=== PATIENT | male | born 1980 | race Caucasian/White ===

== ENCOUNTER 2020-05-22 14:33 | Observation (INO) | payer OTHER ==
[2020-05-22 15:22] VITALS: TEMP 98.5
--- NOTE | 2020-05-22 16:36 | ED ---
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 According to father he hasn't showered in 3 months. According to the father the patient has 3 phones and thinks all of them are bugs. Patient also thinks people are spying on him. Patient thinks his father wants kicked out of the house. Patient thinks It might be involved as well. Patient denies any drug use patient denies any alcohol use (Jose Daniel Rockwell) - Related Data Home Medications Medication Instructions Recorded Confirmed Dextroamphetamine/Amphetamine 15 - 30 mg PO BID PRN 05/22/20 05/22/20 [Adderall] Allergies Allergy/AdvReac Type Severity Reaction Status Date / Time No Known Allergies Allergy Verified 05/22/20 18:18 Review of Systems ROS Other: All systems not noted in ROS Statement are negative. <Jose Daniel Rockwell - Last Filed: 05/22/20 17:07> ROS Other: All systems not noted in ROS Statement are negative. <Franck Cummings - Last Filed: 05/22/20 22:08> ROS Statement: Those systems with pertinent positive or pertinent negative responses have been documented in the HPI. Past Medical History Additional Past Medical History / Comment(s): kidney stones History of Any Multi-Drug Resistant Organisms: None Reported Past Surgical History: No Surgical Hx Reported Past Psychological History: Anxiety, Depression Smoking Status: Current every day smoker Past Alcohol Use History: None Reported Past Drug Use History: None Reported <Jose Daniel Rockwell - Last Filed: 05/22/20 17:07> General Exam Limitations: no limitations <Jose Daniel Rockwell - Last Filed: 05/22/20 17:07> - General Exam Comments Initial Comments: GENERAL: Patient is well-developed and well-nourished. Patient is nontoxic and well- hydrated and is in no acute distress. ENT: Neck is soft and supple. No significant lymphadenopathy is noted. Oropharynx is clear. Moist mucous membranes. Neck has full range of motion without eliciting any pain. EYES: The sclera were anicteric and conjunctiva were pink and moist. Extraocular movements were intact and pupils were equal round and reactive to light. Eyelids were unremarkable. PULMONARY: Unlabored respirations. Good breath sounds bilaterally. No audible rales r honchi or wheezing was noted. CARDIOVASCULAR: Patient is tachycardic at about 150 beats a minute ABDOMEN: Soft and nontender with normal bowel sounds. SKIN: Skin is clear with no lesions or rashes and otherwise unremarkable. NEUROLOGIC: Patient is alert and oriented x3. Cranial nerves II through XII are grossly intact. Motor and sensory are also intact. Normal speech, volume and content. Symmetrical smile. MUSCULOSKELETAL: Normal extremities with adequate strength and full range of motion. LYMPHATICS: No significant lymphadenopathy is noted PSYCHIATRIC: Patient is delusional he believes his phones are In the houses being spied on. Patient states there is someone stalking him as well. Patient thinks this is all in an effort to get him out of the house. Patient also thinks somehow forgotten that may be involved. (Jose Daniel Rockwell) Course Vital Signs 05/22/20 05/22/20 05/22/20 15:15 16:50 17:29 Temperature 98.5 F Pulse Rate 150 H 155 H 142 H Respiratory 20 22 Rate Blood Pressure 156/98 O2 Sat by Pulse 95 Oximetry 05/22/20 05/22/20 05/22/20 17:55 18:24 19:00 Temperature Pulse Rate 132 H 134 H 130 H Respiratory 18 18 18 Rate Blood Pressure 166/110 163/113 O2 Sat by Pulse 99 95 98 Oximetry 05/22/20 21:22 Temperature Pulse Rate 106 H Respiratory Rate Blood Pressure O2 Sat by Pulse Oximetry Medical Decision Making <Jose Daniel Rockwell - Last Filed: 05/22/20 17:07> - Lab Data Result diagrams: 05/22/20 16:57 05/22/20 16:57 <Franck Cummings - Last Filed: 05/22/20 22:08> - Medical Decision Making EKG shows sinus tachycardia at 155 bpm MI interval 112 QRS 76 QT interval 326 QTC is 523 per patient's EKG showsa elevation or depression. (Jose Daniel Rockwell) Patient had presented for psychiatric evaluation, had been petitioned. He was found to be tachycardic by Dr. Rockwell who had initially evaluated the patient. He has no physical complaints. He is quite anxious and acutely psychotic with paranoid behavior. EKG showed a sinus tachycardia and workup was initiated including CBC, CMP, d-dimer, troponin, and drug screen. His troponin level was mildly elevated. After 2 L of IV hydration and some Ativan the patient's heart rate improved to around 100. He has no active chest pain. He will be admitted for hemodynamic monitoring, trended cardiac enzymes, both cardiology and psychiatry consultation. Urine drug screen pending. (Franck Cummings) - Lab Data Lab Results 05/22/20 05/22/20 05/22/20 Range/Units 16:57 16:57 17:12 WBC 10.1 (3.8-10.6) k/uL RBC 5.38 (4.30-5.90) m/uL Hgb 16.2 (13.0-17.5) gm/dL Hct 46.2 (39.0-53.0) % MCV 85.9 (80.0-100.0) fL MCH 30.1 (25.0-35.0) pg MCHC 35.0 (31.0-37.0) g/dL RDW 12.7 (11.5-15.5) % Plt Count 263 (150-450) k/uL MPV 7.3 Neutrophils % 77 % Lymphocytes % 12 % Monocytes % 7 % Eosinophils % 1 % Basophils % 1 % Neutrophils # 7.8 H (1.3-7.7) k/uL Lymphocytes # 1.2 (1.0-4.8) k/uL Monocytes # 0.7 (0-1.0) k/uL Eosinophils # 0.1 (0-0.7) k/uL Basophils # 0.1 (0-0.2) k/uL D-Dimer (<0.60) mg/L FEU Sodium 135 L (137-145) mmol/L Potassium 3.7 (3.5-5.1) mmol/L Chloride 101 (98-107) mmol/L Carbon Dioxide 23 (22-30) mmol/L Anion Gap 11 mmol/L BUN 12 (9-20) mg/dL Creatinine 1.15 (0.66-1.25) mg/dL Est GFR (CKD-EPI)AfAm >90 (>60 ml/min/1.73 sqM) Est GFR (CKD-EPI)NonAf 81 (>60 ml/min/1.73 sqM) Glucose 139 H (74-99) mg/dL Calcium 10.2 (8.4-10.2) mg/dL Total Bilirubin 0.5 (0.2-1.3) mg/dL AST 38 (17-59) U/L ALT 39 (4-49) U/L Alkaline Phosphatase 90 (38-126) U/L Troponin I 0.043 H* (0.000-0.034) ng/mL Total Protein 7.7 (6.3-8.2) g/dL Albumin 4.6 (3.5-5.0) g/dL Coronavirus (PCR) (Not Detectd) 05/22/20 05/22/20 Range/Units 18:23 18:23 WBC (3.8-10.6) k/uL RBC (4.30-5.90) m/uL Hgb (13.0-17.5) gm/dL Hct (39.0-53.0) % MCV (80.0-100.0) fL MCH (25.0-35.0) pg MCHC (31.0-37.0) g/dL RDW (11.5-15.5) % Plt Count (150-450) k/uL MPV Neutrophils % % Lymphocytes % % Monocytes % % Eosinophils % % Basophils % % Neutrophils # (1.3-7.7) k/uL Lymphocytes # (1.0-4.8) k/uL Monocytes # (0-1.0) k/uL Eosinophils # (0-0.7) k/uL Basophils # (0-0.2) k/uL D-Dimer 0.45 (<0.60) mg/L FEU Sodium (137-145) mmol/L Potassium (3.5-5.1) mmol/L Chloride (98-107) mmol/L Carbon Dioxide (22-30) mmol/L Anion Gap mmol/L BUN (9-20) mg/dL Creatinine (0.66-1.25) mg/dL Est GFR (CKD-EPI)AfAm (>60 ml/min/1.73 sqM) Est GFR (CKD-EPI)NonAf (>60 ml/min/1.73 sqM) Glucose (74-99) mg/dL Calcium (8.4-10.2) mg/dL Total Bilirubin (0.2-1.3) mg/dL AST (17-59) U/L ALT (4-49) U/L Alkaline Phosphatase (38-126) U/L Troponin I (0.000-0.034) ng/mL Total Protein (6.3-8.2) g/dL Albumin (3.5-5.0) g/dL Coronavirus (PCR) Not Detected (Not Detectd) Disposition <Jose Daniel Rockwell - Last Filed: 05/22/20 17:07> Is patient prescribed a controlled substance at d/c from ED?: No Decision to Admit Reason: Admit from EC Decision Date: 05/22/20 Decision Time: 22:08 <Franck Cummings - Last Filed: 05/22/20 22:08> Clinical Impression: Psychosis, Acute psychosis, Tachycardia, Elevated troponin Disposition: ADMITTED IP TO THIS [facility] Condition: Stable Referrals: Jesús Tinsley MD [Primary Care Provider] - 1-2 days
[2020-05-22] MEDS ORDERED: SODIUM CHLORIDE 0.9% 2,000 ML IV ONE (16:45)
[2020-05-22 17:11] LABS: Basophils # (A) 0.1 k/uL (0-0.2); Basophils % (A) 1 %; Eosinophils # (A) 0.1 k/uL (0-0.7); Eosinophils % (A) 1 %; HCT 46.2 % (39.0-53.0); HGB 16.2 gm/dL (13.0-17.5); Lymphocytes # (A) 1.2 k/uL (1.0-4.8); Lymphocytes % (A) 12 %; MCH 30.1 pg (25.0-35.0); MCV 85.9 fL (80.0-100.0); Mean Platelet Volume 7.3; Monocytes # (A) 0.7 k/uL (0-1.0); Monocytes % (A) 7 %; Neutrophils # (A) 7.8 k/uL (1.3-7.7); Neutrophils % (A) 77 %; Platelet Count 263 k/uL (150-450); RBC 5.38 m/uL (4.30-5.90); RDW 12.7 % (11.5-15.5); WBC 10.1 k/uL (3.8-10.6)
[2020-05-22 17:20] LABS: ALT 39 U/L (4-49); AST 38 U/L (17-59); African American GFR (CKD) >90 (>60 ml/min/1.73 sqM); Albumin 4.6 g/dL (3.5-5.0); Alkaline Phosphatase 90 U/L (38-126); Anion Gap 11 mmol/L; Blood Urea Nitrogen 12 mg/dL (9-20); Calcium 10.2 mg/dL (8.4-10.2); Carbon Dioxide 23 mmol/L (22-30); Chloride 101 mmol/L (98-107); Glucose 139 mg/dL (74-99); Non-African American GFR(CKD) 81 (>60 ml/min/1.73 sqM); Potassium 3.7 mmol/L (3.5-5.1); Sodium 135 mmol/L (137-145); Total Bilirubin 0.5 mg/dL (0.2-1.3); Total Protein 7.7 g/dL (6.3-8.2)
[2020-05-22] MEDS ORDERED: LORazepam 2 MG/ML INJ IV STA (18:56)
[2020-05-22] MEDS ORDERED: ASPIRIN 325 MG TAB PO STA (21:58)
[2020-05-22] MEDS ORDERED: LORazepam 2 MG/ML INJ IV PRN (21:59)
[2020-05-22] MEDS ORDERED: NALOXONE 0.4 MG/ML 1 ML VIAL IV PRN (21:59)
[2020-05-22] MEDS ORDERED: ACETAMINOPHEN TAB 325 MG TAB PO PRN (21:59)
[2020-05-22] MEDS ORDERED: NICOTINE POLACRILEX 2 MG GUM BUCCAL PRN (22:30)
[2020-05-22] MEDS: SODIUM CHLORIDE 0.9% 1,000 ML IV SCH (22:41)
[2020-05-23] MEDS ORDERED: HALOPERIDOL LACTATE 5 MG/ML 1 ML VIAL IM STA (00:38)
--- NOTE | 2020-05-23 12:00 | ECHOF ---
Referral Reason:LV function, tachycardia MEASUREMENTS -------- HEIGHT: 180.3 cm WEIGHT: 81.6 kg BP: RVIDd: 3.1 cm (< 3.3) IVSd: 0.9 cm (0.6 - 1.1) LVIDd: 4.4 cm (3.9 - 5.3) LVPWd: 1.2 cm (0.6 - 1.1) IVSs: 1.9 cm LVIDs: 1.9 cm LVPWs: 1.9 cm Ao Diam: 3.0 cm (2.0 - 3.7) AV Cusp: 2.3 cm (1.5 - 2.6) LA Diam: 2.8 cm (2.7 - 3.8) MV EXCURSION: 3.471 mm (> 18.000) MV EF SLOPE: 111 mm/s (70 - 150) EPSS: 0.6 cm MV E Marc: 0.87 m/s MV DecT: 228 ms MV A Marc: 0.80 m/s MV E/A Ratio: 1.08 RAP: 5.00 mmHg RVSP: 10.90 mmHg FINDINGS -------- This was a technically adequate study. The left ventricular size is normal. Left ventricular wall thickness is normal. Overall left vent ricular systolic function is normal with, an EF between 55 - 60 %. The diastolic filling pattern is normal for the age of the patient 8.59. The right ventricle is normal in size. The left atrial size is normal. Normal LA size by volume 22+/-6 ml/m2. The right atrial size is normal. The aortic valve is trileaflet and appears structurally normal. The mitral valve is normal. No mitral regurgitation. The tricuspid valve appears structurally normal. Trace tricuspid regurgitation present. Right ayad tricular systolic pressure is normal at < 35 mmHg. There is no pulmonic regurgitation present. The aortic root size is normal. Normal inferior vena cava with normal inspiratory collapse consistent with estimated right atrial pre ssure of 5 mmHg. There is no pericardial effusion. CONCLUSIONS -------- 1. The left ventricular size is normal. 2. Left ventricular wall thickness is normal. 3. Overall left ventricular systolic function is normal with, an EF between 55 - 60 %. 4. The diastolic filling pattern is normal for the age of the patient 8.59 5. Trace tricuspid regurgitation present. 6. There is no pericardial effusion. FINISH MIXER: Rosa Godfrey RDCS
--- NOTE | 2020-05-23 13:12 | P.HPIM ---
History of Present Illness 39-year-old more male came in after he was petitioned by father for bizarre behavior and patient was paranoid, and was having acute psychosis. Please refer to ER physician's documentation for further details. Patient was subsequently admitted to medicine service because of the tachycardia and they believe patient is dehydrated. Patient is an not all at home. May have contributed tachycardia and patient is bit dehydrated as well and patient received IV fluids patient is clinically doing well tach cardia significantly improved and patient can be discharged to psychiatric floor patient is medically stable to be go to psychiatric floor at this time. Review of Systems REVIEW OF SYSTEMS: all other review of systems is negative, patient is not a reliable historian because of his acute psychosis Past Medical History Past Medical History: GERD/Reflux, Renal Disease Additional Past Medical History / Comment(s): kidney stones, small hiatal hernia History of Any Multi-Drug Resistant Organisms: None Reported Past Surgical History: No Surgical Hx Reported Additional Past Surgical History / Comment(s): EGD, colonoscopies Past Anesthesia/Blood Transfusion Reactions: No Reported Reaction, Motion Sickn ess Smoking Status: Current every day smoker - Past Family History Father Family Medical History: No Reported History Additional Family Medical History / Comment(s): Father is healthy Mother Family Medical History: No Reported History Additional Family Medical History / Comment(s): Mother is healthy Medications and Allergies Home Medications Medication Instructions Recorded Confirmed Type Dextroamphetamine/Amphetamine 15 - 30 mg PO BID PRN 05/22/20 05/22/20 History [Adderall] Allergies Allergy/AdvReac Type Severity Reaction Status Date / Time No Known Allergies Allergy Verified 05/22/20 18:18 Physical Exam Vitals: Vital Signs Temp Pulse Resp BP Pulse Ox 05/23/20 10:41 88 18 114/78 99 05/23/20 02:27 90 98 05/22/20 21:22 106 H 05/22/20 19:00 130 H 18 163/113 98 05/22/20 18:24 134 H 18 166/110 95 05/22/20 17:55 132 H 18 99 05/22/20 17:29 142 H 05/22/20 16:50 155 H 22 05/22/20 15:15 98.5 F 150 H 20 156/98 95 Intake and Output 05/22/20 05/23/20 05/23/20 22:59 06:59 14:59 Other: Weight 81.647 kg 81.647 kg PHYSICAL EXAMINATION: GENERAL: Drowsy as he just got Ativan, not in any acute distress. Well developed, well nourished. HEENT: Pupils are round and equally reacting to light. EOMI. No scleral icterus. No conjunctival pallor. Normocephalic, atraumatic. No pharyngeal erythema. No thyromegaly. CARDIOVASCULAR: S1 and S2 present. No murmurs, rubs, or gallops. PULMONARY: Chest is clear to auscultation, no wheezing or crackles. ABDOMEN: Soft, nontender, nondistended, normoactive bowel sounds. No palpable organomegaly. MUSCULOSKELETAL: No joint swelling or deformity. EXTREMITIES: No cyanosis, clubbing, or pedal edema. NEUROLOGICAL: Gross neurological examination did not reveal any focal deficits. SKIN: No rashes. Results CBC & Chem 7: 05/22/20 16:57 05/22/20 16:57 Labs: Abnormal Lab Results - Last 24 Hours (Table) 05/22/20 05/22/20 05/22/20 Range/Units 16:57 16:57 17:12 Neutrophils # 7.8 H (1.3-7.7) k/uL Sodium 135 L (137-145) mmol/L Glucose 139 H (74-99) mg/dL Troponin I 0.043 H* (0.000-0.034) ng/mL Thrombosis Risk Factor Assmnt - Choose All That Apply Any of the Below Risk Factors Present?: No Other Risk Factors: No Other congenital or acquired thrombophilia - If yes, enter type in comment: No Thrombosis Risk Factor Assessment Level: Very Low Risk Assessment and Plan Plan: -Sinus tachycardia: Secondary to dehydration which improved with IV fluid resuscitation tach cardia improved patient will be discharged today to psychiatric floor. Patient is medically to stable to be discharged to psychiatric floor. Patient had an echocardiogram which did not show any significant abnormality patient will not need any further testing at this time. -Hypovolemic hyponatremia received IV fluids -Dehydration leading to acute renal failure, Adderall will be held for now I'll leave the decision of continuation of this medication to psychiatry. -Acute psychosis and possible paranoid schizophrenia. Patient will be discharged to psychiatric floor
--- NOTE | 2020-05-23 13:13 | P.DS ---
Providers Date of admission: 05/22/20 22:01 Attending physician: Zandra Nino Consults: 05/22/20 21:59 Consult Physician Routine Consulting Provider: Berry Arias Reason/Comments: Psychosis Do you want consulting provider notified?: Yes Primary care physician: Alvina Espinosa [facility] Course: Refer to my history of present illness for further details Patient Condition at Discharge: Stable Plan - Discharge Summary Discharge Rx Participant: No New Discharge Prescriptions: No Action Dextroamphetamine/Amphetamine [Adderall] 15 - 30 mg PO BID PRN PRN Reason: ADHD Discharge Medication List Dextroamphetamine/Amphetamine [Adderall] 15 - 30 mg PO BID PRN 05/22/20 [Histo ry] Follow up Appointment(s)/Referral(s): Jesús Tinsley MD [Primary Care Provider] - 3 Days
--- NOTE | 2020-05-23 13:19 | P.CRDCN ---
History of Present Illness Consult date: 05/23/20 History of present illness: HISTORY OF PRESENT ILLNESS: This is a 39-year-old male with a past medical history significant for anxiety, depression, and nicotine dependence. 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 We have been asked to see the patient in consultation for tachycardia and elevated troponin. Patient examined at the bedside in the emergency room. Patient is currently petitioned by his father for paranoia and acute psychosis. Patient was found to be tachycardic in the emergency room with her in the 150s. At the time of examination the patient's heart rate is 60 while sleeping and in the 90s and he is awake and talking. He denies any chest pain or pressure. He denies shortness of breath. He denies palpitations. EKG reveals sinus tachycardia with no signs of acute ischemia Laboratory data: WBC 10.1. Hemoglobin 16.2. Platelet count 263. Sodium 135. Potassium 3.7. BUN 12. Creatinine 1.15. Troponin 0.043. 0.022. 0.017. TSH 1.410 Current home cardiac medications include none Echocardiogram obtained revealed ejection fraction 55-60% with trace tricuspid regurgitation REVIEW OF SYSTEMS: At the time of my exam: CONSTITUTIONAL: Denies fever or chills. HEENT: Denies blurred vision, vision changes, or eye pain. Denies hemoptysis CARDIOVASCULAR: Denies chest pain. Denies orthopnea. Denies PND. Denies palpitations RESPIRATORY: Denies shortness of breath. GASTROINTESTINAL: Denies abdominal pain. Denies nausea or vomiting. HEMATOLOGIC: Denies bleeding disorders. GENITOURINARY: Denies any blood in urine. SKIN: Denies pruitis. Denies rash. PHYSICAL EXAM: VITAL SIGNS: Reviewed. GENERAL: Well-developed in no acute distress. HEENT: Head is normocephalic. Pupils are equal, round. Sclerae anicteric. Mucous membranes of the mouth are moist. Neck supple. No JVD or thyromegaly LUNGS: Respirations even and unlabored. Lungs essentially clear to auscultation bilaterally. HEART: Regular rate and rhythm. S1 and S2 heard. ABDOMEN: Soft. Nondistended. Nontender. EXTREMITIES: Normal range of motion. No clubbing or cyanosis. Peripheral pulses intact. No lower extremity edema NEUROLOGIC: Awake and alert. ASSESSMENT: Acute psychosis Sinus tachycardia, resolved Abnormal troponins of unclear significance, no evidence of acute coronary syndrome PLAN: No further workup from a cardiac standpoint. Patient is stable from a cardiac standpoint to be admitted to the psychiatric unit. We will sign off. Patient reconsult if needed. Nurse practitioner note has been reviewed by physician. Signing provider agrees with the documented findings, assessment, and plan of care. Past Medical History Past Medical History: GERD/Reflux, Renal Disease Additional Past Medical History / Comment(s): kidney stones, small hiatal hernia History of Any Multi-Drug Resistant Organisms: None Reported Past Surgical History: No Surgical Hx Reported Additional Past Surgical History / Comment(s): EGD, colonoscopies Past Anesthesia/Blood Transfusion Reactions: No Reported Reaction, Motion Sickness Smoking Status: Current every day smoker - Past Family History Father Family Medical History: No Reported History Additional Family Medical History / Comment(s): Father is healthy Mother Family Medical History: No Reported History Additional Family Medical History / Comment(s): Mother is healthy Medications and Allergies Home Medications Medication Instructions Recorded Confirmed Type Dextroamphetamine/Amphetamine 15 - 30 mg PO BID PRN 05/22/20 05/22/20 History [Adderall] Allergies Allergy/AdvReac Type Severity Reaction Status Date / Time No Known Allergies Allergy Verified 05/22/20 18:18 Physical Exam Vitals: Vital Signs Temp Pulse Resp BP Pulse Ox 05/23/20 10:41 88 18 114/78 99 05/23/20 02:27 90 98 05/22/20 21:22 106 H 05/22/20 19:00 130 H 18 163/113 98 05/22/20 18:24 134 H 18 166/110 95 05/22/20 17:55 132 H 18 99 05/22/20 17:29 142 H 05/22/20 16:50 155 H 22 05/22/20 15:15 98.5 F 150 H 20 156/98 95 Intake and Output 05/22/20 05/23/20 05/23/20 22:59 06:59 14:59 Other: Weight 81.647 kg 81.647 kg Results 05/22/20 16:57 05/22/20 16:57 Cardiac Enzymes 05/22/20 05/22/20 05/22/20 Range/Units 16:57 17:12 23:00 AST 38 (17-59) U/L Troponin I 0.043 H* 0.022 (0.000-0.034) ng/mL 05/23/20 Range/Units 02:20 AST (17-59) U/L Troponin I 0.017 (0.000-0.034) ng/mL CBC 05/22/20 Range/Units 16:57 WBC 10.1 (3.8-10.6) k/uL RBC 5.38 (4.30-5.90) m/uL Hgb 16.2 (13.0-17.5) gm/dL Hct 46.2 (39.0-53.0) % Plt Count 263 (150-450) k/uL Comprehensive Metabolic Panel 05/22/20 Range/Units 16:57 Sodium 135 L (137-145) mmol/L Potassium 3.7 (3.5-5.1) mmol/L Chloride 101 (98-107) mmol/L Carbon Dioxide 23 (22-30) mmol/L BUN 12 (9-20) mg/dL Creatinine 1.15 (0.66-1.25) mg/dL Glucose 139 H (74-99) mg/dL Calcium 10.2 (8.4-10.2) mg/dL AST 38 (17-59) U/L ALT 39 (4-49) U/L Alkaline Phosphatase 90 (38-126) U/L Total Protein 7.7 (6.3-8.2) g/dL Albumin 4.6 (3.5-5.0) g/dL Current Medications Generic Name Dose Route Start Last Admin Trade Name Freq PRN Reason Stop Dose Admin Acetaminophen 650 mg 05/22/20 21:59 Acetaminophen Tab 325 Mg Tab PO Q6HR PRN Mild Pain or Fever > 100.5 Heparin Sodium (Porcine) 5,000 unit 05/23/20 16:00 Heparin Sodium,Porcine/Pf 5,000 Unit/0.5 Ml Syringe SQ Q8HR CARMEN Sodium Chloride 1,000 mls @ 50 mls/hr 05/22/20 22:00 05/22/20 22:41 Saline 0.9% IV 50 mls/hr .Q20H CARMEN Administration Lorazepam 1 mg 05/22/20 21:59 Lorazepam 2 Mg/Ml Inj IV Q6HR PRN Anxiety Naloxone HCl 0.2 mg 05/22/20 21:59 Naloxone 0.4 Mg/Ml 1 Ml Vial IV Q2M PRN Opioid Reversal Nicotine Polacrilex 2 mg 05/22/20 22:30 05/22/20 22:41 Nicotine Polacrilex 2 Mg Gum BUCCAL 2 mg Q2HR PRN Administration Nicotine Cravings Intake and Output 05/22/20 05/23/20 05/23/20 22:59 06:59 14:59 Other: Weight 81.647 kg 81.647 kg Patient Weight 05/24/20 06:59 Weight 81.647 kg 05/22/20 16:57 05/22/20 16:57
[2020-05-23] MEDS ORDERED: ZIPRASIDONE 20 MG VIAL IM PRN (13:33)
--- NOTE | 2020-05-23 13:34 | P.CN ---
Psychiatric Consult - . Consult date: 05/23/20 Consult:: IDENTIFYING DATA: This patient is a single, unemployed, 39-year-old male who is admitted to the hospital for psychosis HISTORY OF PRESENT ILLNESS: The patient presented to the hospital 05/22/2020, brought to the emergency department and petition by his father for bizarre behavior at home. Patient reports that "People have been fukatherine with me. People have been listening to my phone calls over the last 2 years and harassing me over the past 6-7 months." He endorses significant symptoms of paranoia and bizarre behaviors. The patient reports that he believes his house is being bugged for the last 2 years and that his father's friends who are part of a motorcycle group are behind it. He states that people are harassing him and intercepting his Facebook messages and phone messages. He states that this is because his father is 77 and has not yet retired from work and people are pressuring the patient to find a job and allow his father to retire. The patient reports that he has been living "in sheer panic and fear." He does not endorse any significant symptoms of depression at this time. He reports no prior suicidal attempts. He reports no suicidal ideation, intention, and/or plan. He reports no homicidal ideation, intention, and/or plan. In regards to hallucinations, the patient does not endorse any auditory or visual hallucinations. He does not report any significant symptoms of harish. He denie s any periods of excessive energy, grandiosity, pressured speech, or increased goal directed behavior. The patient denies any significant history of trauma. He reports some history of neglect but reports no physical or sexual abuse. He denies any flashbacks, hypervigilance, or arousal symptoms. The patient is refusing to allow this provider to speak with his father at this time believing that his father will lie about the events prior to this hospitalization. PAST PSYCHIATRIC HISTORY: Patient has a history of attention deficit hyperactivity disorder. He was recently prescribed Adderall after being off the medication for a year and a half. Patient denies any previous psychiatric hospitalizations. The patient is prescribed his Adderall through his primary care provider Dr. Tinsley. Patient denies any history of suicide attempts in the past. PAST MEDICAL HISTORY: Additional Past Medical History / Comment(s): kidney stones History of Any Multi-Drug Resistant Organisms: None Reported Past Surgical History: No Surgical Hx Reported Past Psychological History: Anxiety, Depression Smoking Status: Current every day smoker Past Alcohol Use History: None Reported Past Drug Use History: None Reported ALLERGIES: NO KNOWN DRUG ALLERGIES CHEMICAL DEPENDENCY HISTORY: The patient reports he smokes 1-1/2 packs per day of tobacco. He denies any marijuana, illicit drug use, or alcohol use. FAMILY PSYCHIATRIC/SUBSTANCE USE HISTORY: The patient reports that his sister is "a mental mess." SOCIAL HISTORY: Patient was born and raised in [place], [place]. His parents when he was 11 years old. He has been living with his father since. He is currently single with no children. He has attended some college and was studying computers. MENTAL STATUS EXAM: General Appearance: Patient appears to be stated age is alert, pleasant, and cooperative. Patient appears to have fair hygiene and grooming wearing hospital gown with fair eye contact. Patient is wearing glasses. Behavior: Patient is calmly lying in bed without any agitated behavior. The psychomotor activity is elevated. Eye contact is intermittent. Speech: Patient's speech is fluent and nonpressured. Mood/Affect: Patient reports their mood is "sheer panic and fear", affect is intense and expansive Suicidality/Homicidality: Patient denies having any suicidal or homicidal ideation intent or plan. Perceptions: Patient denies any visual hallucinations and denies any auditory hallucinations Though content/process: The patient is endorsing significant delusional thought content. Delusions of surveillance. Thought process is illogical but linear. Memory and concentration: AOX3, grossly intact for the purposes of this session. Can spell "WORLD" backwards Judgment and insight: Very poor Vital Signs Temp 98.5 F 05/22/20 15:15 Pulse 88 05/23/20 13:17 Resp 16 05/23/20 13:17 BP 119/83 05/23/20 13:17 Pulse Ox 97 05/23/20 13:17 Intake & Output 05/22/20 05/23/20 05/23/20 18:59 06:59 18:59 Weight 81.647 kg 81.647 kg Laboratory Results WBC 10.1 k/uL (3.8-10.6) 05/22/20 16:57 RBC 5.38 m/uL (4.30-5.90) 05/22/20 16:57 Hgb 16.2 gm/dL (13.0-17.5) 05/22/20 16:57 Hct 46.2 % (39.0-53.0) 05/22/20 16:57 MCV 85.9 fL (80.0-100.0) 05/22/20 16:57 MCH 30.1 pg (25.0-35.0) 05/22/20 16:57 MCHC 35.0 g/dL (31.0-37.0) 05/22/20 16:57 RDW 12.7 % (11.5-15.5) 05/22/20 16:57 Plt Count 263 k/uL (150-450) 05/22/20 16:57 MPV 7.3 05/22/20 16:57 Neutrophils % 77 % 05/22/20 16:57 Lymphocytes % 12 % 05/22/20 16:57 Monocytes % 7 % 05/22/20 16:57 Eosinophils % 1 % 05/22/20 16:57 Basophils % 1 % 05/22/20 16:57 Neutrophils # 7.8 k/uL (1.3-7.7) H 05/22/20 16:57 Lymphocytes # 1.2 k/uL (1.0-4.8) 05/22/20 16:57 Monocytes # 0.7 k/uL (0-1.0) 05/22/20 16:57 Eosinophils # 0.1 k/uL (0-0.7) 05/22/20 16:57 Basophils # 0.1 k/uL (0-0.2) 05/22/20 16:57 D-Dimer 0.45 mg/L FEU (<0.60) 05/22/20 18:23 Sodium 135 mmol/L (137-145) L 05/22/20 16:57 Potassium 3.7 mmol/L (3.5-5.1) 05/22/20 16:57 Chloride 101 mmol/L (98-107) 05/22/20 16:57 Carbon Dioxide 23 mmol/L (22-30) 05/22/20 16:57 Anion Gap 11 mmol/L 05/22/20 16:57 BUN 12 mg/dL (9-20) 05/22/20 16:57 Creatinine 1.15 mg/dL (0.66-1.25) 05/22/20 16:57 Est GFR (CKD-EPI)AfAm >90 (>60 ml/min/1.73 sqM) 05/22/20 16:57 Est GFR (CKD-EPI)NonAf 81 (>60 ml/min/1.73 sqM) 05/22/20 16:57 Glucose 139 mg/dL (74-99) H 05/22/20 16:57 Calcium 10.2 mg/dL (8.4-10.2) 05/22/20 16:57 Total Bilirubin 0.5 mg/dL (0.2-1.3) 05/22/20 16:57 AST 38 U/L (17-59) 05/22/20 16:57 ALT 39 U/L (4-49) 05/22/20 16:57 Alkaline Phosphatase 90 U/L (38-126) 05/22/20 16:57 Troponin I 0.017 ng/mL (0.000-0.034) 05/23/20 02:20 Total Protein 7.7 g/dL (6.3-8.2) 05/22/20 16:57 Albumin 4.6 g/dL (3.5-5.0) 05/22/20 16:57 TSH 1.410 mIU/L (0.465-4.680) 05/23/20 02:20 Coronavirus (PCR) Not Detected (Not Detectd) 05/22/20 18:23 IMPRESSIONS: Psychosis, unspecified - rule out schizoaffective disorder versus schizophrenia PLAN: -At this time patient DOES meet criteria for inpatient psychiatric admission. -When medically stable, patient is eligible for transfer to a psych bed when available. -Would recommend the following medication changes/additions: Recommend holding Adderall at this time as Adderall may contribute to paranoid psychosis. It also may contribute to cardiovascular problems that the patient was experiencing. -Geodon 20 mg IM BID PRN For agitation until transferred to the psychiatric unit. -Cannot leave AMA at this time. Patient will need a petition and certification if attempting to leave AMA. -Psychiatry will sign off at this point, please contact with any questions. 05/23/20 13:23
[2020-05-23] MEDS ORDERED: HEPARIN SODIUM,PORCINE/PF 5,000 UNIT/0.5 ML SYRINGE SQ SCH (16:00)
[2020-05-23 18:20] LABS: Amphetamine Screen,Urine Detected (NotDetected); Barbiturate Screen,Urine Not Detected (NotDetected); Benzodiazepines Screen,Urine Detected (NotDetected); Cocaine Screen,Urine Not Detected (NotDetected); Methadone Screen, Urine Not Detected (NotDetected); Opiate Screen,Urine Not Detected (NotDetected); Oxycodone Screen, Urine Not Detected (NotDetected); Phencyclidine Screen,Urine Not Detected (NotDetected); Tricyclic Antidepressant,Urine Not Detected (NotDetected); Urn Cannabinoid Scrn Not Detected (NotDetected)
[2020-05-23] MEDS: SODIUM CHLORIDE 0.9% 1,000 ML IV SCH (19:23)
[2020-05-23 21:30] VITALS: BP 117/81; PULSE 70; RESP 16
== END 2020-05-23 20:23 ==
LOC: EC 14:33 → 6NMEDSUR 22:01
PROVIDERS: ADMIT Hospitalist; ATTEND Hospitalist
DX: F23 Brief psychotic disorder (principal); F32.9 Major depressive disorder, single episode, unspecified; E86.0 Dehydration; N17.9 Acute kidney failure, unspecified; R00.0 Tachycardia, unspecified; R77.8 Other specified abnormalities of plasma proteins; E87.1 Hypo-osmolality and hyponatremia; E86.1 Hypovolemia; F90.9 Attention-deficit hyperactivity disorder, unspecified type; F41.9 Anxiety disorder, unspecified; F17.200 Nicotine dependence, unspecified, uncomplicated; K46.9 Unspecified abdominal hernia without obstruction or gangrene; K21.9 Gastro-esophageal reflux disease without esophagitis; Z79.899 Other long term (current) drug therapy; Z20.822 Contact with and (suspected) exposure to COVID-19; Z87.442 Personal history of urinary calculi
CPT/HCPCS: 82075; 96361; 96372; 96374; 99285; 36415; 93005; 93306; 85379; 80053; 84443; 84484 ×2; 85025; 80306; 87635; G0378 ×2; J2060; J1630

== ENCOUNTER 2020-05-23 20:36 | Inpatient (IN) | payer MEDICAID ==
[2020-05-23] MEDS ORDERED: MAG HYDROX/AL HYDROX/SIMETH 30 ML CUP PO PRN (21:28)
[2020-05-23] MEDS ORDERED: ACETAMINOPHEN TAB 325 MG TAB PO PRN (21:28)
[2020-05-23] MEDS ORDERED: MAGNESIUM HYDROXIDE 2,400 MG/10 ML CUP PO PRN (21:28)
[2020-05-23] MEDS ORDERED: LORazepam 2 MG/ML INJ IM PRN (21:38)
[2020-05-23] MEDS ORDERED: HALOPERIDOL LACTATE 5 MG/ML 1 ML VIAL IM PRN (21:39)
[2020-05-24 07:53] LABS: Cholesterol 148 mg/dL (<200); HDL Cholesterol 23 mg/dL (40-60); LDL Cholesterol,Calculated 96 mg/dL (0-99); Triglycerides 146 mg/dL (<150)
[2020-05-24] MEDS: NICOTINE 14MG/24HR PATCH TRANSDERM SCH ×2 (08:08→09:20)
--- NOTE | 2020-05-24 10:17 | P.HP ---
Psychiatric H&P - . H&P Date: 05/24/20 History & Physical: Allergies Allergy/AdvReac Type Severity Reaction Status Date / Time No Known Allergies Allergy Verified 05/22/20 18:18 Vital Signs Temp 97.6 F 05/23/20 23:03 Pulse 97 05/23/20 23:03 Resp 18 05/23/20 23:03 BP 137/89 05/23/20 23:03 Pulse Ox 95 05/23/20 23:03 Intake & Output 05/23/20 05/24/20 05/24/20 18:59 06:59 18:59 Weight 81.64 kg Laboratory Last Values Triglycerides 146 mg/dL (<150) 05/24/20 06:57 Cholesterol 148 mg/dL (<200) 05/24/20 06:57 LDL Cholesterol, Calc 96 mg/dL (0-99) 05/24/20 06:57 HDL Cholesterol 23 mg/dL (40-60) L 05/24/20 06:57 05/24/20 10:08 IDENTIFYING DATA: Patient is a able, unemployed, 39-year-old male who was admitted to the hospital for psychosis. HPI: Patient presented to the hospital on 05/22/20. The patient was petitioned by his father and certified by the emergency room physician for bizarre behavior at home. As per petition, the patient has been endorsing significant paranoid delusions, believing the FBI and others are monitoring him. He also believes that his phones have been bugged. He is also displayed and inability to care for himself as he has not showered over the last 3 weeks. When examined by this provider, the patient continues to endorse significant paranoia. He firmly believes that everyone is monitoring him or trying to mess with him. He suspects that people are intercepting his Facebook messages and phone messages. When asked what makes him a target, the patient is unable to provide any information as to why he specifically subject to this kind of abuse. In regards to other psychotic symptoms, the patient does not endorse any auditory or visual hallucinations. In regards to mood, the patient does not endorse any significant symptoms depression or harish. He does express that he feels like he is in constant fear and panic. The patient does report some history of neglect as a child but denies any specific history of physical or sexual abuse. He reports no flashbacks, nightmares, hypervigilance, or arousal symptoms. When informed that the patient is displaying significant symptoms of schizophrenia, the patient vehemently denies as diagnosis stating that what he is experiencing is real and he cannot be convinced otherwise. PAST PSYCHIATRIC HISTORY: Patient states that he has a history of attention deficit hyperactivity disorder. He was recently prescribed Adderall after being off medication for a year and a half. This is the patient's first inpatient psychiatric hospitalization. Sleep, he has been receiving his Adderall through his primary care provider Dr. Tinsley. Patient denies any history of suicide attempts in the past. PMH: Additional Past Medical History / Comment(s): kidney stones History of Any Multi-Drug Resistant Organisms: None Reported Past Surgical History: No Surgical Hx Reported Past Psychological History: Anxiety, Depression Smoking Status: Current every day smoker Past Alcohol Use History: None Reported Past Drug Use History: None Reported ALLERGIES: NO KNOWN DRUG ALLERGIES CHEMICAL DEPENDENCY HISTORY: The patient reports he smokes 1-1/2 pack of cigarettes per day. He denies any marijuana, illicit drug, or alcohol use. FAMILY PSYCHIATRIC/SUBSTANCE USE HISTORY: The patient reports that his sister is "a mental mess." He denies any significant family history of substance abuse. SOCIAL HISTORY: Patient was born and raised in in [place], [place]. His parents when he was 11 years old. He currently lives with his father. He is single and has no children. He was never . He attended some college and was studying computers. MENTAL STATUS EXAM: General Appearance: Patient appears to be stated age is alert, directable, and attempts to cooperate. Patient appears to have poor hygiene and grooming. Behavior: Patient is seated without any agitated behavior. Psychomotor activity is elevated. Speech: Patient's speech is fluent and nonpressured. Mood/Affect: Patient reports their mood is "upset," affect is congruent, irritable, and intense. Suicidality/Homicidality: Patient denies having any homicidal ideation intent or plan. Denies any suicidal ideations intent or plan Perceptions: Patient denies any visual hallucinations and denies any auditory hallucinations Though content/process: Patient is endorsing significant delusional thought content. Thought processes logical but linear. Memory and concentration: AOX3, grossly intact for the purposes of this session. Can spell "WORLD" backwards Judgment and insight: Very poor STRENGTHS/WEAKNESSES: Strength is that patient has stable housing and a supportive father. Weakness is that patient has very poor insight. INTELLECT: average IMPRESSIONS: Schizophrenia Nicotine dependence PLAN: -Patient is admitted under involuntary status to [facility] for stabilization of psychiatric symptoms and safety. A second certification was completed and along with petition will be filed for court. -The patient is refusing to sign a release of information for his father at this time. We will continue to encourage the patient to participate in treatment. -Medications : The patient states that he will refuse any medications. We will likely have to await a court order. -Ativan and Haldol PRN for agitation/aggression -Internal Medicine consult to perform medical evaluation and physical. -NRT - nicotine patch -SW on board for discharge planning. Encourage patient to participate in groups to work on coping skills. 05/24/20 10:16
[2020-05-24] MEDS: CHOLECALCIFEROL 25 MCG (1000 IU) TABLET PO SCH (13:52)
--- NOTE | 2020-05-24 14:13 | P.MDCNMH ---
History of Present Illness H&P Date: 05/24/20 Chief Complaint: Bizarre behavior Patient is a 39-year-old male with a known history of renal stones, GERD, small hiatal hernia, currently everyday smoker, ADHD and was recently prescribed Adderall after being off for a year and half was brought to the hospital due to bizarre behavior at home. Patient was petitioned by his father for acute psychosis. Patient has been having paranoid ideation and inability to care for himself at home and has not taken showered for almost 3 weeks. Patient was admitted to the hospital inpatient psychiatric unit. Patient is currently in the dining room and is tolerating diet very well. No complaints of chest pain or shortness of breath. No nausea vomiting or abdominal pain or diarrhea. No dysuria or hematuria. No headache or dizziness or lightheadedness. No fever no chills. Denied any recent illnesses. Patient does smoke an daily basis. Denied any marijuana use or drug abuse. Review of Systems Constitutional: Patient denies any fever or chills . No generalized weakness or weight loss. Abdomen: Patient denied nausea vomiting and diarrhea and abdominal pain. Cardiovascular: Patient denies any chest pain or short of breath no palpitations. Respiratory: patient denied any cough is from production. No shortness of breath Neurologic: Patient denied any numbness or tingling headache. Musculoskeletal: Patient denies any complaints of joint swelling or deformity. Skin: Negative Psychiatric: Paranoid delusions. Endocrine: No heat or cold intolerance. No recent weight gain. Genitourinary: No dysuria or hematuria. All other 14 point ROS negative except the above Past Medical History Past Medical History: GERD/Reflux, Renal Disease Additional Past Medical History / Comment(s): kidney stones, small hiatal hernia History of Any Multi-Drug Resistant Organisms: None Reported Past Surgical History: No Surgical Hx Reported Additional Past Surgical History / Comment(s): EGD, colonoscopies Past Anesthesia/Blood Transfusion Reactions: No Reported Reaction, Motion Sickness Smoking Status: Current every day smoker - Past Family History Father Family Medical History: No Reported History Additional Family Medical History / Comment(s): Father is healthy Mother Family Medical History: No Reported History Additional Family Medical History / Comment(s): Mother is healthy Medications and Allergies Home Medications Medication Instructions Recorded Confirmed Type Dextroamphetamine/Amphetamine 15 - 30 mg PO BID PRN 05/22/20 05/23/20 History [Adderall] Allergies Allergy/AdvReac Type Severity Reaction Status Date / Time No Known Allergies Allergy Verified 05/22/20 18:18 Physical Exam Vitals: Vital Signs Temp Pulse Resp BP Pulse Ox 05/23/20 23:03 97.6 F 97 18 137/89 95 Intake and Output 05/23/20 05/24/20 05/24/20 22:59 06:59 14:59 Other: Weight 81.64 kg PHYSICAL EXAMINATION: Patient is lying in the bed comfortably, no acute distress, awake alert and oriented.. HEENT: Normocephalic. Neck is supple. Pupils reactive. Nostrils clear. Oral cavity is moist. Ears reveal no drainage. Neck reveals no JVD, carotid bruits, or thyromegaly. CHEST EXAMINATION: Trachea is central. Symmetrical expansion. Lung hicks clear to auscultation and percussion. CARDIAC: Normal S1, S2 with no gallops. No murmurs ABDOMEN: Soft. Bowel sounds normal. No organomegaly. No abdominal bruits. Extremities: reveal no edema. No clubbing or cyanosis Neurologically awake, alert, oriented x3 with well-coordinated movements. No focal deficits noted Skin: No rash or skin lesions. Psychiatric: Coperative. Nonsuicidal Musculoskeletal: No joint swelling or deformity. Normal range of motion. Cranial Nerve Examination - Cranial Nerves Cranial Nerve I- Olfactory: Intact Cranial Nerve II- Optic: Intact Cranial Nerve III- Oculomotor: Intact Cranial Nerve IV- Trochlear: Intact Cranial Nerve V- Trigeminal: Intact Cranial Nerve - Abducens: Intact Cranial Nerve VII- Facial: Intact Cranial Nerve VIII- Auditory: Intact Cranial Nerve IX- Glossopharyngeal: Intact Cranial Nerve X- Vagus: Intact Cranial Nerve XI- Accessory: Intact Cranial Nerve XII- Hypoglossal: Intact Results Labs: Abnormal Lab Results - Last 24 Hours (Table) 05/24/20 Range/Units 06:57 HDL Cholesterol 23 L (40-60) mg/dL Assessment and Plan Assessment: Acute psychosis NOS. Petitioned by his father due to bizarre behavior at home. ADD/ADHD Vitamin D deficiency History of renal stones. Currently denied any flank pain or dysuria. GERD Small hiatal hernia Currently everyday smoker DVT prophylaxis with early ambulation. Plan: Patient will be continued on current psychiatric evaluation and management. TSH and other laboratory data reviewed. Liver enzymes are within normal limits. Patient will be started on vitamin D supplementation. Otherwise continue the current management. Will follow with you and further recommendations based on the clinical course. Smoking cessation has been counseled. Thank you for your consult.
[2020-05-25] MEDS: NICOTINE 14MG/24HR PATCH TRANSDERM SCH (07:59)
[2020-05-25] MEDS: CHOLECALCIFEROL 25 MCG (1000 IU) TABLET PO SCH (09:11)
[2020-05-25 16:44] LABS: Appearance,Urine Clear (Clear); Bilirubin,Urine Negative (Negative); Blood,Urine Small (Negative); Color,Urine Yellow; Glucose,Urine (UA) Negative (Negative); Hyaline Casts,Urine 1 /lpf (0-2); Ketones,Urine Negative (Negative); Leukocyte Esterase,Urine Negative (Negative); Mucus,Urine Few /hpf; Nitrite,Urine Negative (Negative); Protein,Urine Negative (Negative); RBC,Urine 7 /hpf (0-5); Specific Gravity,Urine 1.014 (1.001-1.035); Urobilinogen,Urine <2.0 mg/dL (<2.0); WBC,Urine 1 /hpf (0-5)
--- NOTE | 2020-05-25 22:23 | P.PN ---
Progress Note - Text Progress Note Date: 05/25/20 Identifying Information 39 year old male with no prior psychiatric hospitalizations was admitted to [facility] with a petition filed by his family memebrs for bizzare and delusional behaviors. He was recently prescribed Adderall after being off medication for a year and a half. Patient states he does not even know why he was hospitalized. He reports being stalked by some people in the real world AND HE THINKS IT HAS SOMETHING TO DO with inheriting money. He also says he has pissed off some people in the real world who are trying to get back at him. He says he has legitimate reasons to be paranoid as he believes some people in the world are trying to mess with him. He also beleives his phone being tapped. When asked about him not showering for three weeks according to the petition he says his dads bath room is very nasty and did not feel like taking bath there. He says he wants to be released home. He reports good sleep and appetite. He says he does not want to be on any medications that is going to interfere with his intellect and says being int hospital is very scarry. he says he is very intelligent person and has good writting skills. 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 MENTAL STATUS EXAM: General Appearance: Patient appears his stated age in fair hygiene and grooming. Behavior: No psychomotor agitation or retardation. Speech: Patient's speech is fluent and nonpressured. Mood/Affect: Patient reports their mood is "upset," affect is congruent, irritable, and intense. Suicidality/Homicidality: Patient denies having any homicidal ideation intent or plan. Denies any suicidal ideations intent or plan Perceptions: Patient denies any visual hallucinations and denies any auditory hallucinations Though content/process: Paranoid delsuional. Judgment and insight: Very poor Assessment Amphetamine induced psychosis Rule out Schizophrenia Nicotine dependence -The patient is refusing to sign a release of information for his father at this time. We will continue to encourage the patient to participate in treatment. -Medications : The patient states that he will refuse any medications. We will likely have to await a court order. -Ativan and Haldol PRN for agitation/aggression -NRT - nicotine patch
[2020-05-26] MEDS: NICOTINE 14MG/24HR PATCH TRANSDERM SCH (08:32)
[2020-05-26] MEDS: CHOLECALCIFEROL 25 MCG (1000 IU) TABLET PO SCH (08:32)
--- NOTE | 2020-05-26 19:41 | P.PN ---
Progress Note - Text Progress Note Date: 05/26/20 39 year old male with no prior psychiatric hospitalizations was admitted to [facility] with a petition filed by his family memebrs for bizzare and delusional behaviors. He was recently prescribed Adderall after being off medication for a year and a half. Patient states he does not understand why his family put him in the hospital. He says his dad wanted him to go the hospital. He also stated he might have reacted to some of the things his dad said to him. He says he had believed what was told to him by his dad. He reports feeling stressed about being hospitalized and says he really want to go home. He says he does not belong here. He continues to be paranoid and delusional. He says he does not want to be on any medications that is going to interfere with his intellect and says being in the hospital is very scarry. he says he is very intelligent person and has good writting skills. 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 MENTAL STATUS EXAM: General Appearance: Patient appears his stated age in fair hygiene and grooming. Behavior: No psychomotor agitation or retardation. Speech: Patient's speech is fluent and nonpressured. Mood/Affect: Patient reports their mood is "upset," affect is congruent, irritable, and intense. Suicidality/Homicidality: Patient denies having any homicidal ideation intent or plan. Denies any suicidal ideations intent or plan Perceptions: Patient denies any visual hallucinations and denies any auditory hallucinations Though content/process: Paranoid delsuional. Judgment and insight: Very poor Assessment Amphetamine induced psychosis Rule out Schizophrenia Nicotine dependence -The patient is refusing to sign a release of information for his father at this time. We will continue to encourage the patient to participate in treatment. -Medications : The patient states that he will refuse any medications. We will likely have to await a court order. -Ativan and Haldol PRN for agitation/aggression -NRT - nicotine patch
[2020-05-27] MEDS: CHOLECALCIFEROL 25 MCG (1000 IU) TABLET PO SCH (09:06)
[2020-05-27] MEDS: NICOTINE 14MG/24HR PATCH TRANSDERM SCH (09:56)
[2020-05-27] MEDS ORDERED: risperiDONE 1 MG TAB PO STA (10:29)
--- NOTE | 2020-05-27 10:58 | P.PN ---
Progress Note - Text Progress Note Date: 05/27/20 Interval History: Patient was seen in his room and was directable and agreeable to speak with leader writer in the office. The patient continues to believe that there is no significant psychiatric pathology that needs to be treated while he is in this unit. He continues to believe that he is being monitored, his phones and social media are bugged, and suspects that his family is trying to mess with him so that his father may retire. He continues to present with no improvement in his hygiene and grooming. He is not reporting any suicidal or homicidal ideation, intention, and/or plan. He is denying any auditory or visual hallucinations. The patient is asking what he needs to do in order for discharge stating that he does not feel that inpatient psychiatric unit is beneficial for his mental health. He was informed that he would have to take medications and follow up with his appointments. The patient is stating that he does not want to take any medications and was informed that he can present his case to the mental health court. The patient states that he is likely not to win the mental health court case due to what was written about him. He states that he would try the medications today. Mental Status Exam: General Appearance: Patient appears to be stated age is alert, difficult to direct, and intermittently cooperative. Poor hygiene and grooming. Patient's hands are very dirty and soiled. Behavior: Patient is calmly seated without any agitated behavior. Psychomotor activity slightly elevated. Speech: Patient's speech is fluent and nonpressured. Spontaneous, repetitive, monotone. Mood/Affect: Mood is "not doing so good." Affect is blunted but intense. Suicidality/Homicidality: Patient denies having any suicidal or homicidal ideation intent or plan. Perceptions: Patient denies any visual hallucinations and denies any auditory hallucinations Though content/process: Patient is very paranoid and endorses bizarre delusions. Thought process is repetitive with loose associations. 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 The patient has been petitioned and certified. -Medications: We will start Risperdal 1 mg by mouth twice a day for psychosis. It is unsure at this time whether the patient will defer. It is possible that we will likely have to await a court order for medication adherence. -When necessary Ativan and Haldol for agitation/aggression. -NRT - nicotine patch -SW on board for discharge planning. Encouraged the patient to participate in milieu.
[2020-05-27] MEDS: risperiDONE 1 MG TAB PO SCH (21:07)
[2020-05-28] MEDS: risperiDONE 1 MG TAB PO SCH ×2 (09:06→21:28)
[2020-05-28] MEDS: CHOLECALCIFEROL 25 MCG (1000 IU) TABLET PO SCH (09:06)
[2020-05-28] MEDS: NICOTINE 14MG/24HR PATCH TRANSDERM SCH (09:07)
--- NOTE | 2020-05-28 10:22 | P.PN ---
Progress Note - Text Progress Note Date: 05/28/20 Interval History: Patient was seen in his room and was directable and agreeable to speak with radio script writer in his room. The patient reports that he is willing to take the medications. He expresses some concern about the mental health court process. He is yet to meet with the photoengraving finisher and is unsure if he is going to defer. He is currently not reporting any suicidal or homicidal ideation, intention, and/or plan. He is denying any auditory or visual hallucinations. He continues to believe that he has been subject to stalking, harassment, and surveillance while at home but states that this is not going on while he is on the unit. He has taken Risperdal yesterday and this morning and is not reporting any significant side effects at this time. He does not report feeling any different. He continues to not address any of his hygiene and was encouraged to go shower today. The patient reports that he just does not choose to do so because he "does not feel like it." Mental Status Exam: General Appearance: Patient appears to be stated age is alert, difficult to direct, and intermittently cooperative. Poor hygiene and grooming. Patient's hands are very dirty and soiled. Behavior: Patient is calmly seated without any agitated behavior. Psychomotor activity is normal today. Speech: Patient's speech is fluent and nonpressured. Spontaneous, repetitive, monotone. Mood/Affect: Mood is "doing okay." Affect is blunted but was slightly better range. Suicidality/Homicidality: Patient denies having any suicidal or homicidal ideation intent or plan. Perceptions: Patient denies any visual hallucinations and denies any auditory hallucinations Though content/process: Patient continues to endorse some paranoia but is less forthcoming with his delusions. Thought process appears to be linear and logical. 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 The patient has been petitioned and certified. -Medications: Increase Risperdal to 2 mg by mouth twice a day for mood stabilization/psychosis It is unsure at this time whether the patient will defer. It is possible that we will likely have to await a court order for medication adherence. -When necessary Ativan and Haldol for agitation/aggression. -NRT - nicotine patch -SW on board for discharge planning. Encouraged the patient to participate in milieu.
[2020-05-29] MEDS: NICOTINE 14MG/24HR PATCH TRANSDERM SCH (08:58)
[2020-05-29] MEDS: risperiDONE 1 MG TAB PO SCH (08:59)
[2020-05-29] MEDS: CHOLECALCIFEROL 25 MCG (1000 IU) TABLET PO SCH (08:59)
--- NOTE | 2020-05-29 10:25 | P.PN ---
Progress Note - Text Progress Note Date: 05/29/20 Interval History: Patient was seen in his room and was directable and agreeable to speak with specification writer in his room. The patient has been adherent to his medications and is not reporting significant side effects at this time. He continues to endorse paranoid and delusional thoughts believing that people are surveilling him and messing with him. When asked with an goal is, the patient maintains that it is to try and get him out of the house so that his father may retire. The patient is unable to provide any further examples of specific actions against him aside from people messaging him. He continues to express concern that something may happen. He is currently not reporting any auditory or visual hallucinations. He is not endorsing any suicidal or homicidal ideation, intention, and/or plan. The patient states that he is scared of going to court and is nervous about meeting the commercial litigation attorney tomorrow. The patient has been able to shower. He reports no issues with sleep or appetite. Mental Status Exam: General Appearance: Patient appears to be stated age is alert, difficult to direct, and cooperative. Much improved hygiene and grooming. Behavior: Patient is calmly seated without any agitated behavior. Normal psychomotor activity. Speech: Patient's speech is fluent and nonpressured. Spontaneous, repetitive, monotone. Mood/Affect: Mood is "a little nervous." Affect is constricted in range. Suicidality/Homicidality: Patient denies having any suicidal or homicidal ideation intent or plan. Perceptions: Patient denies any visual hallucinations and denies any auditory hallucinations Though content/process: Patient continues to endorse paranoia. Thought process appears to be linear and logical. 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 The patient has been petitioned and certified. Patient is scheduled to meet with the commercial litigation attorney tomorrow. The patient reports that he plans to defer court. -Medications: Increase Risperdal to 2 mg by mouth in the morning and 3 mg by mouth at bedtime for psychosis. May consider augmentation with a mood stabilizer or transition to the first generation after psychotic. -When necessary Ativan and Haldol for agitation/aggression. -NRT - nicotine patch -SW on board for discharge planning. Encouraged the patient to participate in milieu.
[2020-05-29] MEDS ORDERED: risperiDONE 1 MG TAB PO SCH (21:00)
[2020-05-30] MEDS: CHOLECALCIFEROL 25 MCG (1000 IU) TABLET PO SCH (08:29)
[2020-05-30] MEDS: risperiDONE 1 MG TAB PO SCH (08:29)
[2020-05-30] MEDS: NICOTINE 14MG/24HR PATCH TRANSDERM SCH (08:32)
--- NOTE | 2020-05-30 11:05 | P.PN ---
Progress Note - Text Progress Note Date: 05/30/20 Interval History: Patient was seen in his room and was directable and agreeable to speak with writer technical publications in his room. The patient is not reporting any significant issues regarding any suicidal or homicidal ideation, intention, and sexual plan. He continues to maintain that there is some plot by his sister and father acting against him. He continues to feel like he is being surveyed in the outpatient setting. He reports that none of this appears to be going on while he is an inpatient psychiatric unit. He has been adherent with his medications but reports some sedation as a side effect. He is currently not reporting any auditory or visual hallucinations. He denies any issues with sleep or appetite. The patient reports that he was able to defer court yesterday. He is expressing a strong desire for discharge. Mental Status Exam: General Appearance: Patient appears to be stated age is alert, difficult to direct, and cooperative. Good hygiene and grooming. Behavior: Patient is calmly seated without any agitated behavior. Normal psychomotor activity. Speech: Patient's speech is fluent and nonpressured. Spontaneous, repetitive, monotone. Mood/Affect: Mood is "still nervous." Affect is constricted in range. Suicidality/Homicidality: Patient denies having any suicidal or homicidal ideation intent or plan. Perceptions: Patient denies any visual hallucinations and denies any auditory hallucinations Though content/process: Patient continues to endorse paranoia. Thought process appears to be linear and logical. 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 The patient deferred court. -Medications: Increase Risperdal to 2 mg by mouth in the morning and 4 mg by mouth at bedtime for psychosis. -When necessary Ativan and Haldol for agitation/aggression. -NRT - nicotine patch -SW on board for discharge planning. Encouraged the patient to participate in milieu.
[2020-05-30] MEDS: risperiDONE 2 MG TAB PO SCH (21:09)
[2020-05-30] MEDS: LORazepam 1 MG TAB PO PRN (21:21)
[2020-05-31] MEDS: CHOLECALCIFEROL 25 MCG (1000 IU) TABLET PO SCH (08:37)
[2020-05-31] MEDS: risperiDONE 1 MG TAB PO SCH (08:37)
[2020-05-31] MEDS: NICOTINE 14MG/24HR PATCH TRANSDERM SCH (08:37)
--- NOTE | 2020-05-31 10:30 | P.PN ---
Progress Note - Text Progress Note Date: 05/31/20 Interval History: Patient was seen in his room and was directable and agreeable to speak with marketing copywriter in his room. He is to endorse significant paranoia and delusional thought processes. He states that it was his father who informed him that the FBI was after him and continues to believe that this is the case despite not producing any substantial ends that people are acting against him. He reports that the proof that people are messing with him are people who address him as "Matthew"and not Rishi as he states that he only goes by "Matthew" with his sister and father and finds it odd that others have been addressing him this way. He is currently not reporting any suicidal or homicidal ideation, intention, and/or plan. He is not reporting any auditory or visual hallucinations. He has been adherent to his medications and is reporting some sedation as a side effect. Mental Status Exam: General Appearance: Patient appears to be stated age is alert, difficult to direct, and cooperative. Good hygiene and grooming. Behavior: Patient is calmly seated without any agitated behavior. Normal psychomotor activity. Speech: Patient's speech is fluent and nonpressured. Spontaneous, repetitive, monotone. Mood/Affect: Mood is "I just want to go home." Affect is somewhat blunted. Suicidality/Homicidality: Patient denies having any suicidal or homicidal ideation intent or plan. Perceptions: Patient denies any visual hallucinations and denies any auditory hallucinations Though content/process: Patient continues to endorse significant paranoia. Thought process appears to be linear but illogical. 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 The patient deferred court. -We will continue to try and encourage the patient to allow this provider to speak with his father. -Medications: Increase Risperdal to 3 mg by mouth in the morning and 4 mg by mouth at bedtime for psychosis. Recommend gradual titration of Risperdal over the weekend to a final dose of 4 m g by mouth twice a day. We will also add Depakote 250 mg at bedtime Wednesday to augment treatment. Gradually titrate over the weekend. -When necessary Ativan and Haldol for agitation/aggression. -NRT - nicotine patch -SW on board for discharge planning. Encouraged the patient to participate in milieu.
[2020-05-31 11:36] VITALS: BMI 24.3
[2020-05-31] MEDS: DIVALPROEX ER 250 MG TAB.ER.24H PO SCH (21:22)
[2020-05-31] MEDS: risperiDONE 2 MG TAB PO SCH (21:22)
[2020-05-31] MEDS: LORazepam 1 MG TAB PO PRN (21:25)
[2020-06-01] MEDS ORDERED: risperiDONE 1 MG TAB PO SCH (09:00)
[2020-06-01] MEDS: CHOLECALCIFEROL 25 MCG (1000 IU) TABLET PO SCH (09:23)
[2020-06-01] MEDS: NICOTINE 14MG/24HR PATCH TRANSDERM SCH (09:24)
[2020-06-01 09:27] VITALS: RESP 20
--- NOTE | 2020-06-01 10:42 | P.PN ---
Progress Note - Text Progress Note Date: 06/01/20 Interval History: Patient was seen in his room and was directable and agreeable to speak with real estate underwriter. He is paranoid but denies any hallucinations but with a pause. He stated "they are trying to fuck me up". When asked who was he talking about he rolled his eyes looked to the other side and kept Quiet. He demanded he wants to be out by Wednesday. Patient denies any side effects from the medications and said he has been compliant with meds. Mental Status Exam: General Appearance: Patient appears to be stated age is and is alert Behavior: Patient is not calmly seated but without any agitated behavior. Speech: Patient's speech is fluent and nonpressured. Mood/Affect: Mood is improving mildly, affect is labile. Suicidality/Homicidality: Patient denies having any suicidal or homicidal ideation intent or plan. Perceptions: Patient denies any visual hallucinations. Though content/process: There is evidence of delusional thought content and thought process is linear and goal-directed. Memory and concentration: AOX3, grossly intact for the purposes of this session Judgment and insight: Improving mildly Assessment The patient was admitted to Hospital because of psychosis and he continues to be delusional and demanding and it needs to be maintained in the structure of the milieu. Plan: -Patient continues to meet criteria for inpatient psychiatric admission for symptom stabilization and safety. -Medications: Stated that he is taking his medication and the does not have any side effects. -When necessary Ativan and Haldol for agitation/aggression. -SW on board for discharge planning. Encouraged the patient to participate in milieu.
[2020-06-01] MEDS: risperiDONE 2 MG TAB PO SCH (21:18)
[2020-06-01] MEDS: LORazepam 1 MG TAB PO PRN (21:18)
[2020-06-01] MEDS: DIVALPROEX ER 250 MG TAB.ER.24H PO SCH (21:18)
[2020-06-02] MEDS: CHOLECALCIFEROL 25 MCG (1000 IU) TABLET PO SCH (08:35)
[2020-06-02] MEDS: risperiDONE 2 MG TAB PO SCH ×2 (08:35→20:46)
[2020-06-02 08:37] VITALS: BP 136/96; PULSE 124
[2020-06-02] MEDS: NICOTINE 14MG/24HR PATCH TRANSDERM SCH (08:43)
[2020-06-02] MEDS ORDERED: INFLUENZA VACCINE (6 MOS+) 60 MCG/0.5 ML SYRINGE IM ONE (09:04)
--- NOTE | 2020-06-02 11:57 | P.PN ---
Progress Note - Text Progress Note Date: 06/02/20 Interval History: Patient was seen in his room and was agreeable to speak with health science writer. The patient was petitioned by his father and certified by the emergency room physician for bizarre behavior at home. Patient denies any auditory, visual hallucinations and denies any paranoia or delusions. Patient is still angry. Patient denies any side effects from the medications and has been reportedly compliant with meds. Mental Status Exam: General Appearance: Patient appears to be stated age is alert, directable, and only partially cooperative. Behavior: Patient is without any agitated behavior. Speech: Patient's speech is non-pressured. Mood/Affect: Mood is improving mildly, affect is constricted. Suicidality/Homicidality: Patient denies having any suicidal or homicidal ideation intent or plan. Perceptions: Patient denies any visual hallucinations and denies any auditory hallucinations Though content/process: There is still some evidence of delusional thought content and thought process is linear. Memory and concentration: AOX3, grossly intact for the purposes of this session Judgment and insight: Improving mildly Assessment Patient is showing only mild improvement in his clinical condition. Plan: -Patient continues to meet criteria for inpatient psychiatric admission for symptom stabilization and safety. -Medications: He stated he is taking his medications. -When necessary Ativan and Haldol for agitation/aggression. -SW on board for discharge planning. Encouraged the patient to participate in milieu.
[2020-06-02] MEDS: LORazepam 1 MG TAB PO PRN (20:46)
[2020-06-02] MEDS ORDERED: DIVALPROEX ER 500 MG TAB.ER.24H PO SCH (21:00)
[2020-06-03] MEDS: risperiDONE 2 MG TAB PO SCH (08:36)
[2020-06-03] MEDS: NICOTINE 14MG/24HR PATCH TRANSDERM SCH (08:36)
[2020-06-03] MEDS: CHOLECALCIFEROL 25 MCG (1000 IU) TABLET PO SCH (08:36)
[2020-06-03 09:07] VITALS: TEMP 97.8
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
== END 2020-06-03 12:38 | disposition home or self-care (01) | DRG 897 ==
LOC: 3MHU 20:36
PROVIDERS: ADMIT Psychiatry & Neurology Psychiatry; ATTEND Psychiatry & Neurology Psychiatry
DX: F15.959 Other stimulant use, unspecified with stimulant-induced psychotic disorder, unspecified (principal); F17.200 Nicotine dependence, unspecified, uncomplicated; F20.9 Schizophrenia, unspecified; F32.9 Major depressive disorder, single episode, unspecified; F41.9 Anxiety disorder, unspecified; F60.0 Paranoid personality disorder; Z62.812 Personal history of neglect in childhood; Z79.899 Other long term (current) drug therapy; Z87.442 Personal history of urinary calculi
CPT/HCPCS: 80061; 81001; 90686

== ENCOUNTER 2022-11-17 16:55 | Inpatient (IN) | payer MEDICAID, OTHER ==
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
[2022-11-17 19:29] LABS: Amphetamine Screen,Urine Not Detected (NotDetected); Barbiturate Screen,Urine Not Detected (NotDetected); Benzodiazepines Screen,Urine Not Detected (NotDetected); Cocaine Screen,Urine Not Detected (NotDetected); Methadone Screen, Urine Not Detected (NotDetected); Opiate Screen,Urine Not Detected (NotDetected); Oxycodone Screen, Urine Not Detected (NotDetected); Phencyclidine Screen,Urine Not Detected (NotDetected); Tricyclic Antidepressant,Urine Not Detected (NotDetected); Urn Cannabinoid Scrn Not Detected (NotDetected)
[2022-11-17] MEDS ORDERED: NICOTINE 21MG/24HR PATCH TRANSDERM STA (23:55)
[2022-11-18] MEDS ORDERED: LORazepam 1 MG TAB PO STA ×2 (01:03→14:24)
[2022-11-18] MEDS ORDERED: NICOTINE 21MG/24HR PATCH TRANSDERM STA (12:19)
[2022-11-18] MEDS ORDERED: ACETAMINOPHEN TAB 325 MG TAB PO PRN (16:08)
[2022-11-18] MEDS ORDERED: OLANZapine 10 MG VIAL IM PRN (16:08)
[2022-11-18] MEDS ORDERED: LORazepam 1 MG TAB PO PRN (16:08)
[2022-11-18] MEDS: LORazepam 1 MG TAB PO PRN (20:43)
--- NOTE | 2022-11-19 03:11 | P.CONS ---
History of Present Illness - Reason for Consult Consult date: 11/19/22 - History of Present Illness The patient is a 42-year-old male with a PMH of bipolar disorder and ADHD who was brought to the emergency room under police custody after his family petitioned him. The patient was recommended to the mental health unit where he was seen and evaluated. The patient reports that he believes he is under investigation by the FBI after false reports made by his family. He denied any physical complaints at the time of interview. Denied experiencing chest discomfort, shortness breath, fever, chills, cough, nausea, vomiting, abdominal pain, diarrhea. He denied tobacco, alcohol, or substance use. Review of systems: Pertinent positives and negatives as discussed in HPI, a complete review of systems was performed and all other systems are negative. Physical examination: General: non toxic, no distress, appears at stated age, obese Derm: no unusual rashes/lesions, no unusual ecchymoses, warm, dry Head: atraumatic, normocephalic, symmetric Eyes: EOMI, no lid lag, anicteric sclera ENT: Nose and ears atraumatic, no thrush, no pharyngeal erythema Neck: trachea midline, supple Mouth: no lip lesion, mucus membranes moist Cardiovascular: S1S2 reg, no murmur, no edema Lungs: CTA bilateral, no rhonchi, no rales , no accessory muscle use Abdominal: soft, nontender to palpation, no guarding Ext: no gross muscle atrophy, no contractures, Neuro: No gross focal neuro deficits noted Psych: Alert, oriented, appropriate affect Assessment: Paranoia, possible psychosis Imaging: None performed Data Review: Urine toxicology unremarkable Plan: Defer management of paranoia to primary psychiatry service Thank you for allowing us to participate in the care of this patient. We will follow peripherally. Do not hesitate to contact us with questions. Someone can be reached from the [facility] hospitalist group at all hours of the day at [phone]. Past Medical History Past Medical History: GERD/Reflux, Renal Disease Additional Past Medical History / Comment(s): kidney stones, small hiatal hernia History of Any Multi-Drug Resistant Organisms: None Reported Past Surgical History: No Surgical Hx Reported Additional Past Surgical History / Comment(s): EGD, colonoscopies Past Anesthesia/Blood Transfusion Reactions: No Reported Reaction, Motion Sickness Past Psychological History: ADD/ADHD, Anxiety, Depression Additional Psychological History / Comment(s): Pt resides with his parents. He drives. He denies any thoughts/plans of suicide. He states his father is trying to get him into trouble but does not elaborate. Smoking Status: Vaper Past Alcohol Use History: None Reported Additional Past Alcohol Use History / Comment(s): Pt started smoking as a teen. Past Drug Use History: None Reported - Past Family History Father Family Medical History: No Reported History Additional Family Medical History / Comment(s): Father is healthy Mother Family Medical History: No Reported History Additional Family Medical History / Comment(s): Mother is healthy Medications and Allergies Home Medications Medication Instructions Recorded Confirmed Type No Known Home Medications 11/18/22 11/18/22 History Allergies Allergy/AdvReac Type Severity Reaction Status Date / Time No Known Allergies Allergy Verified 11/18/22 08:44 Physical Exam Vitals: Vital Signs Temp Pulse Pulse Resp BP BP Pulse Ox 11/18/22 17:27 97.5 F L 123 H 20 136/91 11/18/22 06:49 97.6 F 100 16 121/80 99 11/18/22 01:20 98.2 F 109 H 19 177/137 97 11/18/22 01:00 98.2 F 114 H 19 183/147 95 Intake and Output 11/18/22 11/18/22 11/19/22 14:59 22:59 06:59 Other: Weight 104.326 kg
[2022-11-19] MEDS: NICOTINE 21MG/24HR PATCH TRANSDERM SCH (08:22)
[2022-11-19] MEDS: LORazepam 1 MG TAB PO PRN ×2 (08:23→20:23)
[2022-11-19] MEDS: haloperidoL 5 MG TAB PO PRN (10:38)
[2022-11-19 10:47] LABS: Basophils # (A) 0.1 k/uL (0-0.2); Basophils % (A) 0 %; Eosinophils # (A) 0.3 k/uL (0-0.7); Eosinophils % (A) 2 %; HCT 43.2 % (39.0-53.0); HGB 14.1 gm/dL (13.0-17.5); Lymphocytes # (A) 2.8 k/uL (1.0-4.8); Lymphocytes % (A) 24 %; MCH 29.3 pg (25.0-35.0); MCHC 32.6 g/dL (31.0-37.0); MCV 89.9 fL (80.0-100.0); Mean Platelet Volume 7.4; Monocytes # (A) 0.7 k/uL (0-1.0); Monocytes % (A) 6 %; Neutrophils # (A) 7.5 k/uL (1.3-7.7); Neutrophils % (A) 66 %; Platelet Count 377 k/uL (150-450); RBC 4.81 m/uL (4.30-5.90); RDW 13.6 % (11.5-15.5); WBC 11.5 k/uL (3.8-10.6)
[2022-11-19 11:23] LABS: ALT 31 U/L (4-49); AST 28 U/L (17-59); African American GFR (CKD) >90 (>60 ml/min/1.73 sqM); Albumin 4.4 g/dL (3.5-5.0); Alkaline Phosphatase 78 U/L (38-126); Anion Gap 12 mmol/L; Blood Urea Nitrogen 18 mg/dL (9-20); Calcium 9.9 mg/dL (8.4-10.2); Carbon Dioxide 23 mmol/L (22-30); Chloride 104 mmol/L (98-107); Glucose 117 mg/dL (74-99); Non-African American GFR(CKD) >90 (>60 ml/min/1.73 sqM); Potassium 4.5 mmol/L (3.5-5.1); Sodium 139 mmol/L (137-145); Total Bilirubin 0.5 mg/dL (0.2-1.3); Total Protein 7.6 g/dL (6.3-8.2)
--- NOTE | 2022-11-19 13:02 | P.HP ---
Psychiatric H&P - . H&P Date: 11/19/22 History & Physical: Allergies Allergy/AdvReac Type Severity Reaction Status Date / Time No Known Allergies Allergy Verified 11/18/22 08:44 Vital Signs Temp 97.5 F L 11/18/22 17:27 Pulse 123 H 11/18/22 17:27 Resp 20 11/18/22 17:27 BP 136/91 11/18/22 17:27 Pulse Ox 99 11/18/22 06:49 FiO2 Intake & Output 11/18/22 11/19/22 11/19/22 18:59 06:59 18:59 Weight 104.326 kg Laboratory Last Values WBC 11.5 k/uL (3.8-10.6) H 11/19/22 10:02 RBC 4.81 m/uL (4.30-5.90) 11/19/22 10:02 Hgb 14.1 gm/dL (13.0-17.5) 11/19/22 10:02 Hct 43.2 % (39.0-53.0) 11/19/22 10:02 MCV 89.9 fL (80.0-100.0) 11/19/22 10:02 MCH 29.3 pg (25.0-35.0) 11/19/22 10:02 MCHC 32.6 g/dL (31.0-37.0) 11/19/22 10:02 RDW 13.6 % (11.5-15.5) 11/19/22 10:02 Plt Count 377 k/uL (150-450) 11/19/22 10:02 MPV 7.4 11/19/22 10:02 Neutrophils % 66 % 11/19/22 10:02 Lymphocytes % 24 % 11/19/22 10:02 Monocytes % 6 % 11/19/22 10:02 Eosinophils % 2 % 11/19/22 10:02 Basophils % 0 % 11/19/22 10:02 Neutrophils # 7.5 k/uL (1.3-7.7) 11/19/22 10:02 Lymphocytes # 2.8 k/uL (1.0-4.8) 11/19/22 10:02 Monocytes # 0.7 k/uL (0-1.0) 11/19/22 10:02 Eosinophils # 0.3 k/uL (0-0.7) 11/19/22 10:02 Basophils # 0.1 k/uL (0-0.2) 11/19/22 10:02 Sodium 139 mmol/L (137-145) 11/19/22 10:02 Potassium 4.5 mmol/L (3.5-5.1) 11/19/22 10:02 Chloride 104 mmol/L (98-107) 11/19/22 10:02 Carbon Dioxide 23 mmol/L (22-30) 11/19/22 10:02 Anion Gap 12 mmol/L 11/19/22 10:02 BUN 18 mg/dL (9-20) 11/19/22 10:02 Creatinine 0.86 mg/dL (0.66-1.25) 11/19/22 10:02 Est GFR (CKD-EPI)AfAm >90 (>60 ml/min/1.73 sqM) 11/19/22 10:02 Est GFR (CKD-EPI)NonAf >90 (>60 ml/min/1.73 sqM) 11/19/22 10:02 Glucose 117 mg/dL (74-99) H 11/19/22 10:02 Calcium 9.9 mg/dL (8.4-10.2) 11/19/22 10:02 Total Bilirubin 0.5 mg/dL (0.2-1.3) 11/19/22 10:02 AST 28 U/L (17-59) 11/19/22 10:02 ALT 31 U/L (4-49) 11/19/22 10:02 Alkaline Phosphatase 78 U/L (38-126) 11/19/22 10:02 Total Protein 7.6 g/dL (6.3-8.2) 11/19/22 10:02 Albumin 4.4 g/dL (3.5-5.0) 11/19/22 10:02 TSH 1.520 mIU/L (0.465-4.680) 11/19/22 10:02 Urine Opiates Screen Not Detected (NotDetected) 11/17/22 18:48 Ur Oxycodone Screen Not Detected (NotDetected) 11/17/22 18:48 Urine Methadone Screen Not Detected (NotDetected) 11/17/22 18:48 Ur Propoxyphene Screen Not Detected (NotDetected) 11/17/22 18:48 Ur Barbiturates Screen Not Detected (NotDetected) 11/17/22 18:48 U Tricyclic Antidepress Not Detected (NotDetected) 11/17/22 18:48 Ur Phencyclidine Scrn Not Detected (NotDetected) 11/17/22 18:48 Ur Amphetamines Screen Not Detected (NotDetected) 11/17/22 18:48 U Methamphetamines Scrn Not Detected (NotDetected) 11/17/22 18:48 U Benzodiazepines Scrn Not Detected (NotDetected) 11/17/22 18:48 Urine Cocaine Screen Not Detected (NotDetected) 11/17/22 18:48 U Marijuana (THC) Screen Not Detected (NotDetected) 11/17/22 18:48 Coronavirus (PCR) Not Detected (Not Detectd) 11/18/22 15:20 11/19/22 12:44 This is a psychiatric assessment on Rishi Menon The patient is a 42-year-old male with a PMH of bipolar disorder and ADHD who was brought to the emergency room under police custody after his family jessicao leslie him. The patient was recommended to the mental health unit where he was seen and evaluated. The patient reports that he believes he is under investigation by the FBI after false reports made by his family. The patient reports that there is nothing wrong with him and that this was a conspiracy by his father and his sister He states that his father as a multimillion dollar business with a [employer] and he was supposed to get the inheritance and that the sister has been manipulating his father He states that he has nothing wrong with him and that he has no reason to be here He stated that he would not take any medication although he'll take some Ativan which helps him to relax He denies any alcohol or substance use He denies being on any medications Past history personal and social history Patient reports that he was brought here previously on one occasion few years ago patient would not elaborate any further We tried to get information on his personal life but patient seems to preoccupied with his being entrapped by his father and sister and continues to repeat about being here against his will 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 Speech: Patient's speech is somewhat pressured Mood/Affect: Patient reports their mood is mainly anxious affect is congruent and constricted. Suicidality/Homicidality: Patient denies having any homicidal ideation intent or plan. Denies any suicidal ideation, intent or plan today. Perceptions: Patient denies any visual hallucinations and denies any auditory hallucinations. Though content/process: Patient exhibits paranoia projection rationalization intellectualization Memory and concentration: AOX3, grossly intact for the purposes of this session Judgment and insight: poor, Substance use history: Patient has denied any substance use and his drug screening also appears to be negative IMPRESSIONS: bipolar disorder unspecified PLAN: -Patient is admitted under involuntary status to MHU for stabilization of psychiatric symptoms and safety. Patient has declined to signadult voluntary form and is placed in patient's art. A petition and certificate will be initiated and patient will also need to be taken to the court for medication management -Medications: -Ativan and Haldol PRN for agitation/aggression -NRT - nicotine patch - on board for discharge planning. Encourage patient to participate in groups to work on coping skills. Continue safety precautions all the patient has not shown any signs of any agg ression or impulsive acting out Julio Hutton M.D.
[2022-11-19 16:40] LABS: Chol/HDL Ratio 7.23 Ratio; LDL Cholesterol,Calculated 136.4 mg/dL (0.0-131.0)
[2022-11-20] MEDS: NICOTINE 21MG/24HR PATCH TRANSDERM SCH (08:46)
[2022-11-20] MEDS: LORazepam 1 MG TAB PO PRN ×2 (08:47→20:41)
[2022-11-20] MEDS: haloperidoL 5 MG TAB PO PRN (08:47)
--- NOTE | 2022-11-20 12:32 | P.PN ---
Subjective Progress Note Date: 11/20/22 Principal diagnosis: IMPRESSIONS: bipolar disorder unspecified 11/20/22 Subjective data: The patient was seen in his room where he was laying comfortably When asked about any problems patient stated that he does not have any He states that the only problem there is is about his father and his sister who needs treatment He denies that he needs any help Patient was informed that the decision will be made most likely by the court that will decide if he needs help or treatment Patient then demanded what prove is a court however I have Patient remains argumentative projective and difficult to be redirected Vision however did not exhibit any aggressive acting out but more remains verbally argumentative Mental status examination: General Appearance: Patient appears to be somewhat heavyset male with long hernandez and is in hospital gown and pacing around rapidly in the hallway Patient continue to follow this food writer for a while until he was advised Behavior: Patient is anxious but redirectable and is cooperative. Speech: Patient's speech is somewhat pressured Mood/Affect: Patient reports their mood is mainly anxious affect is congruent and constricted. Suicidality/Homicidality: Patient denies having any homicidal ideation intent or plan. Denies any suicidal ideation, intent or plan today. Perceptions: Patient denies any visual hallucinations and denies any auditory hallucinations. Though content/process: Patient exhibits paranoia projection rationalization int ellectualization Memory and concentration: AOX3, grossly intact for the purposes of this session Judgment and insight: poor, Substance use history: Patient has denied any substance use and his drug screening also appears to be negative IMPRESSIONS: bipolar disorder unspecified PLAN: -Patient is admitted under involuntary status to MHU for stabilization of psychiatric symptoms and safety. Patient has declined to sign adult voluntary form and is placed in patient's chart. A petition and certificate has been initiated and patient will also need to be taken to the court for medication management -Medications: -Ativan and Haldol PRN for agitation/aggression -NRT - nicotine patch -SW on board for discharge planning. Encourage patient to participate in groups to work on coping skills. Continue safety precautions all the patient has not shown any signs of any aggression or impulsive acting out Julio Hutton M.D. 11/20/2022 Objective - Vital Signs Vital signs: Vital Signs Temp 98.3 F 11/20/22 06:44 Pulse 152 H 11/20/22 06:44 Resp 20 11/18/22 17:27 BP 133/83 11/20/22 06:44 Pulse Ox 99 11/18/22 06:49 FiO2 - Labs CBC & Chem 7: 11/19/22 10:02 11/19/22 10:02 Labs: Abnormal Lab Results - Last 24 Hours (Table) 11/19/22 Range/Units 10:02 Triglycerides 352.00 H (0.00-149.00) mg/dL Cholesterol 240.00 H (0.00-200.00) mg/dL LDL Cholesterol, Calc 136.4 H (0.0-131.0) mg/dL VLDL Cholesterol, Calc 70.40 H (5.00-40.00) mg/dL HDL Cholesterol 33.20 L (40.00-60.00) mg/dL
[2022-11-20] MEDS ORDERED: OLANZapine 2.5 MG TAB PO SCH (21:00)
[2022-11-21] MEDS: LORazepam 1 MG TAB PO PRN ×2 (08:36→20:39)
[2022-11-21] MEDS: NICOTINE 21MG/24HR PATCH TRANSDERM SCH (08:36)
--- NOTE | 2022-11-21 10:49 | P.PN ---
Subjective Progress Note Date: 11/21/22 Principal diagnosis: IMPRESSIONS: bipolar disorder unspecified 11/21/22 Subjective data: The patient approached this underwriter yesterday in the hallway stating that he is willing to cooperate and take any medications that I prescribed He states that he prefers to do this instead of going to the court Patient did not bring up the issues of disagreement but at this time states that he is going to get the treatment is recommended When seen today patient was laying comfortably in bed and again agreed and reiterated his previous statement He did not voice any other issues or concerns was states that he is willing to cooperate Mental status examination: General Appearance: Patient appears to be somewhat heavyset male with long hernandez and is in hospital gown and pacing around rapidly in the hallway Patient continue to follow this underwriter for a while until he was advised Behavior: Patient is anxious but redirectable and is cooperative. Speech: Patient's speech is somewhat pressured Mood/Affect: Patient reports their mood is mainly anxious affect is congruent and constricted. Suicidality/Homicidality: Patient denies having any homicidal ideation intent or plan. Denies any suicidal ideation, intent or plan today. Perceptions: Patient denies any visual hallucinations and denies any auditory hallucinations. Though content/process: Patient is guarded at this time any superficial interaction Patient however appears to have reached a new level of understanding with wa padmaja regarding going through the treatment plan Memory and concentration: AOX3, grossly intact for the purposes of this session Judgment and insight: poor, Substance use history: Patient has denied any substance use and his drug screening also appears to be negative IMPRESSIONS: bipolar disorder unspecified PLAN: Patient at this time wants to have the medications started that is reasonable and wants to go through the treatment Patient did not give any of his reasons but states that he does not want to go to the court -Patient status is changed to voluntary status Patient has has signed the adult voluntary form and is placed in patient's chart. -Medications: -Ativan and Haldol PRN for agitation/aggression Patient was given an initial dose of Zyprexa 2.5 mg last night which she was able to handle well without any side effects We'll increase it further to 5 mg daily today as well as will also add Depakote 500 mg twice a day to start within titrated to response Have discussed effects and side effects of the patient which she appears to have understood -NRT - nicotine patch -SW on board for discharge planning. Encourage patient to participate in groups to work on coping skills. Continue safety precautions all the patient has not shown any signs of any aggression or impulsive acting out Julio Brennen Lauren 11/21/2022 Objective - Vital Signs Vital signs: Vital Signs Temp 98.3 F 11/20/22 06:44 Pulse 152 H 11/20/22 06:44 Resp 20 11/18/22 17:27 BP 133/83 11/20/22 06:44 Pulse Ox 99 11/18/22 06:49 FiO2 - Labs CBC & Chem 7: 11/19/22 10:02 11/19/22 10:02
[2022-11-21] MEDS: DIVALPROEX 500 MG TABLET.DR PO SCH (20:39)
[2022-11-21] MEDS: haloperidoL 5 MG TAB PO PRN (23:26)
--- NOTE | 2022-11-22 08:20 | P.PN ---
Subjective Progress Note Date: 11/22/22 Principal diagnosis: IMPRESSIONS: bipolar disorder unspecified 11/22/22 Subjective data: The patient was seen for a follow-up Patient was laying comfortably in bed and was easily arousable Patient stated that he has been taking the medication and is not having any side effects He states that he change his mind because he wants to get out of here Patient stated that he will be going back to stay with his father When asked about how he felt towards his father since he was the one he feels had reported him to the FBI patient states that that was his problem and that he will mind his own business Patient continues to rationalize and intellectualize and remains projective Mental status examination: General Appearance: Patient appears to be somewhat heavyset male with long hernandez and is in hospital gown and pacing around rapidly in the hallway Patient continue to follow this literary writer for a while until he was advised Behavior: Patient is anxious but redirectable and is cooperative. Speech: Patient's speech is somewhat pressured Mood/Affect: Patient reports their mood is mainly anxious affect is congruent and constricted. Suicidality/Homicidality: Patient denies having any homicidal ideation intent or plan. Denies any suicidal ideation, intent or plan today. Perceptions: Patient denies any visual hallucinations and denies any auditory hallucinations. Though content/process: Patient is guarded at this time any superficial interaction Patient however appears to have reached a new level of understanding with himself regarding going through the treatment plan Memory and concentration: AOX3, grossly intact for the purposes of this session Judgment and insight: poor, Substance use history: Patient has denied any substance use and his drug screening also appears to be negative IMPRESSIONS: bipolar disorder unspecified PLAN: Patient at this time wants to have the medications started that is reasonable and wants to go through the treatment Patient did not give any of his reasons but states that he does not want to go to the court -Patient status is changed to voluntary status Patient has has signed the adult voluntary form and is placed in patient's chart. -Medications: -Ativan and Haldol PRN for agitation/aggression Continue Zyprexa 5 mg daily Continue Depakote 500 mg twice a day to start within titrated to response Have discussed effects and side effects of the patient which she appears to have understood -NRT - nicotine patch -SW on board for discharge planning. Encourage patient to participate in groups to work on coping skills. Continue safety precautions all the patient has not shown any signs of any aggression or impulsive acting out Patient will need valproic acid levels in the next 2-3 days Julio Hutton M.D. 11/21/2022 Objective - Vital Signs Vital signs: Vital Signs Temp 98.3 F 11/20/22 06:44 Pulse 152 H 11/20/22 06:44 Resp 20 11/18/22 17:27 BP 133/83 11/20/22 06:44 Pulse Ox 99 11/18/22 06:49 FiO2 - Labs CBC & Chem 7: 11/19/22 10:02 11/19/22 10:02
[2022-11-22] MEDS: NICOTINE 21MG/24HR PATCH TRANSDERM SCH (08:25)
[2022-11-22] MEDS: DIVALPROEX 500 MG TABLET.DR PO SCH ×2 (08:25→21:17)
[2022-11-22] MEDS: OLANZapine 5 MG TAB PO SCH (08:25)
[2022-11-22] MEDS: LORazepam 1 MG TAB PO PRN ×2 (08:27→21:17)
[2022-11-23] MEDS: DIVALPROEX 500 MG TABLET.DR PO SCH ×2 (08:29→20:41)
[2022-11-23] MEDS: NICOTINE 21MG/24HR PATCH TRANSDERM SCH (08:29)
[2022-11-23] MEDS: OLANZapine 5 MG TAB PO SCH (08:29)
[2022-11-23] MEDS: LORazepam 1 MG TAB PO PRN ×3 (08:30→20:42)
--- NOTE | 2022-11-23 10:05 | P.PN ---
Progress Note - Text Progress Note Date: 11/23/22 Subjective data: The patient was seen for a follow-up today and was laying in his bed. patient w as somewhat directable today during conversation. he states that his father and sister are "clinical narcissists" and states that they are also "psychopaths". he states that the fbi was called by his dad to get him in correction. He states that his mood and anxietyu are fair at this time. he was focusing on his father and sister at this time. He states that he slept on and off last night and states that he is feeling somewhat better todya. was agreeable to have his meds switched. claims that his appetite is fair. at this time he is denying any Si or Hi and denies any Ah or VH. Mental status examination: General Appearance: Patient appears to be somewhat heavyset male with long hernandez, more cooperative today Behavior: Patient is anxious but redirectable and is cooperative. Speech: Patient's speech is somewhat pressured, improving mildly Mood/Affect: Patient reports their mood is improving mildly affect is congruent and constricted. Suicidality/Homicidality: Patient denies having any homicidal ideation intent or plan. Denies any suicidal ideation, intent or plan today. Perceptions: Patient denies any visual hallucinations and denies any auditory hallucinations. Though content/process: Patient is focused on his sister and father, rambling at times. preoccupied with his family members. Memory and concentration: AOX3, grossly intact for the purposes of this session Judgment and insight: poor, improving midlly IMPRESSIONS: bipolar disorder with psychotic features PLAN: -Patient status is changed to voluntary status. Patient has has signed the adult voluntary form and is placed in patient's chart. -Medications: -Ativan and Haldol PRN for agitation/aggression changed Zyprexa 7.5 mg daily at bedtime for mood stabilization/psychosis. changed Depakote 1000 mg twice a day to start within titrated to response -NRT - nicotine patch -SW on board for discharge planning. Patient will need valproic acid levels in the next 2-3 days if patient improves
[2022-11-23] MEDS: METOPROLOL SUCCINATE (ER) 25 MG TAB.ER.24H PO SCH (17:30)
[2022-11-23] MEDS ORDERED: OLANZapine 7.5 MG TAB PO SCH (21:00)
[2022-11-24] MEDS: haloperidoL 5 MG TAB PO PRN (00:20)
[2022-11-24] MEDS: METOPROLOL SUCCINATE (ER) 25 MG TAB.ER.24H PO SCH (08:34)
[2022-11-24] MEDS: NICOTINE 21MG/24HR PATCH TRANSDERM SCH (08:34)
[2022-11-24] MEDS: LORazepam 1 MG TAB PO PRN ×3 (08:35→22:32)
[2022-11-24] MEDS ORDERED: hydrOXYzine pamoate 25 MG CAP PO PRN (10:19)
[2022-11-24] MEDS ORDERED: traZODone HCL 50 MG TAB PO PRN (10:19)
--- NOTE | 2022-11-24 10:25 | P.PN ---
Progress Note - Text Progress Note Date: 11/24/22 Subjective data: The patient was seen for a follow-up today and was laying in his bed. patient w as somewhat directable today during conversation. He continues to be fairly concrete. He was less focused on his sister and also his father. He claimed that he still wants to go back to live with his father however wants to eventually move out. He was more appropriate today during conversation. He states that his anxiety and mood of been improving. He claims that he did take a Haldol last night when necessary due to inability to sleep. We spoke about increasing the Zyprexa and he wanted to try trazodone as needed for sleep. States that his appetite is fair. He is going to some groups. at this time he is denying any Si or Hi and denies any Ah or VH. Mental status examination: General Appearance: Patient appears to be somewhat heavyset male with long hernandez, more cooperative today Behavior: Patient is anxious but redirectable and is cooperative. Speech: Patient's speech is somewhat, improving mildly Mood/Affect: Patient reports their mood is improving mildly affect is congruent Suicidality/Homicidality: Patient denies having any homicidal ideation intent or plan. Denies any suicidal ideation, intent or plan today. Perceptions: Patient denies any visual hallucinations and denies any auditory hallucinations. Though content/process: Patient is less focused on his sister and father, more focused on discharge today. [place]. Memory and concentration: AOX3, grossly intact for the purposes of this session Judgment and insight: poor, improving midlly IMPRESSIONS: bipolar disorder with psychotic features PLAN: -Patient status is changed to voluntary status. Patient has has signed the adult voluntary form and is placed in patient's chart. -Medications: increase Zyprexa 10 mg daily at bedtime for mood stabilization/psychosis. continue Depakote 1000 mg qhs for mood stabilization. add trazodone 50 mg qhs prn for sleep -Ativan and Haldol PRN for agitation/aggression. vistaril prn for anxiety. -NRT - nicotine patch -SW on board for discharge planning. likely discharge tomorrow if home envt is safe, no guns/weapons and also if patient is improving. plugger worker to speak with father and prepare for discharge tomorrow.
[2022-11-24] MEDS ORDERED: OLANZapine 10 MG TAB PO SCH (21:00)
[2022-11-24] MEDS: DIVALPROEX 500 MG TABLET.DR PO SCH (21:31)
[2022-11-25 07:20] VITALS: RESP 14; TEMP 97.6
[2022-11-25] MEDS: NICOTINE 21MG/24HR PATCH TRANSDERM SCH (08:55)
[2022-11-25] MEDS: LORazepam 1 MG TAB PO PRN (08:56)
[2022-11-25] MEDS: METOPROLOL SUCCINATE (ER) 25 MG TAB.ER.24H PO SCH (08:56)
[2022-11-25 09:10] VITALS: BP 130/93; PULSE 116
--- NOTE | 2022-11-25 09:55 | P.DS ---
Providers Date of admission: 11/18/22 16:01 Expected date of discharge: 11/25/22 Attending physician: Dillan Doll MD Consults: 11/18/22 16:08 Consult Physician Routine Consulting Provider: Khloe Fields Consult Reason/Comments: H and P Do you want consulting provider notified?: Yes Primary care physician: Stated None - Discharge Diagnosis(es) (1) Bipolar disorder with psychotic features Current Visit: Yes Status: Acute Priority: High (2) Nicotine dependence Current Visit: Yes Status: Acute Priority: Low Hospital Course: Admission HPI: Admission note was completed by television script writer "This is a psychiatric assessment on Rishi Menon The patient is a 42-year-old male with a PMH of bipolar disorder and ADHD who was brought to the emergency room under police custody after his family petitioned him. The patient was recommended to the mental health unit where he was seen and evaluated. The patient reports that he believes he is under investigation by the FBI after false reports made by his family. The patient reports that there is nothing wrong with him and that this was a conspiracy by his father and his sister He states that his father as a multimillion dollar business with a [employer] and he was supposed to get the inheritance and that the sister has been manipulating his father He states that he has nothing wrong with him and that he has no reason to be here He stated that he would not take any medication although he'll take some Ativan which helps him to relax He denies any alcohol or substance use He denies being on any medications." Hospital course: Upon admission to the unit patient was directable and agreeable to commence treatment and signed adult voluntary form . Patient got along well with other patients on the unit and followed unit protocol. Patient was compliant with the medications and denied any side effects throughout hospital course. Patient was started on Zyprexa and increased her dose of 10 mg daily at bedtime for mood stabilization/psychosis, however, 1000 mg daily at bedtime for mood stabilization, trazodone 50 mg daily at bedtime when necessary for sleep, Vistaril 50 mg daily when necessary for anxiety. Patient spoke of his stressors and engaged in therapy both group and individual. Patient was also seen by medical team for history and physical exam. Throughout the course of the hospitalization patient gradually improved with regards to mood, anxiety, racing thoughts, paranoia, sleep and returned back to their baseline level of functioning. On the day of discharge patient denied any suicidal or homicidal ideations intent or plan denied any auditory or visual hallucinations. Patient endorsed wanting to live for his health and future. The patient denied any access to guns or weapons, claims that his father has guns however they are locked away and he does not have access to them. Patient denied any paranoia and did not endorse any delusions. Patient does not have a significant history of substance abuse and was counseled on abstaining from all substances including alcohol and marijuana. Patient was also counseled on the medications and need for regular compliance and was encouraged to follow-up with their outpatient appointment for mental health and also for primary care. Prior to discharge a family meeting will be arranged by high school social studies teacher to answer any questions and ensure safety upon discharge. Mental status exam: General Appearance: Patient appears to be stated age is alert, pleasant, and cooperative. Patient is in no acute distress and has improved hygiene and grooming Behavior: Patient is calmly seated without any agitated behavior. Speech: Patient's speech is fluent and nonpressured. Mood/Affect: Patient reports their mood is "better", affect is congruent Suicidality/Homicidality: Patient denies having any suicidal or homicidal ideation intent or plan. Perceptions: Patient denies any auditory or visual hallucinations. Though content/process: There is no evidence of any delusional thought content and thought process is linear and goal-directed. Memory and concentration: AOX3, grossly intact for the purposes of this session. Can spell "WORLD" backwards correctly. Judgment and insight: chronically poor, however has improved with guarded prognosis Impression: Bipolar disorder with psychotic features Nicotine dependence Plan: -Continue with discharge today as patient has improved and stabilized psychiatrically and is not currently an imminent threat to himself and/or others. Patient will remain at chronically elevated risk for harm to self and/or others due to his impulsivity. -Continue medications: Zyprexa 10 mg daily at bedtime for mood stabilization/psychosis, Depakote 1000 mg daily at bedtime for mood stabilization, trazodone 50 mg daily at bedtime when necessary for sleep, Vistaril 50 mg when necessary daily for anxiety. -Patient was counseled on the need for medication compliance and appropriate follow-up at mental health and also primary care for medical issues. Patient verbalized understanding and agreed. -Social work to arrange for and conduct family meeting to ensure safety upon discharge and answer any questions/concerns. Social work also to arrange for patients follow up appointments with [facility] for psychiatric care along with follow up with primary care provider. -Patient counseled on abstaining from recreational drugs and marijuana and alcohol. Was informed/educated on the adverse effects on their physical and mental health. Patient verbally agreed and understood. -Patient was instructed to return to the hospital or seek immediate medical care if their psychiatric or medical symptoms do worsen or reoccur. Allergies Allergy/AdvReac Type Severity Reaction Status Date / Time No Known Allergies Allergy Verified 11/18/22 08:44 Laboratory Results WBC 11.5 k/uL (3.8-10.6) H 11/19/22 10:02 RBC 4.81 m/uL (4.30-5.90) 11/19/22 10:02 Hgb 14.1 gm/dL (13.0-17.5) 11/19/22 10:02 Hct 43.2 % (39.0-53.0) 11/19/22 10:02 MCV 89.9 fL (80.0-100.0) 11/19/22 10:02 MCH 29.3 pg (25.0-35.0) 11/19/22 10:02 MCHC 32.6 g/dL (31.0-37.0) 11/19/22 10:02 RDW 13.6 % (11.5-15.5) 11/19/22 10:02 Plt Count 377 k/uL (150-450) 11/19/22 10:02 MPV 7.4 11/19/22 10:02 Neutrophils % 66 % 11/19/22 10:02 Lymphocytes % 24 % 11/19/22 10:02 Monocytes % 6 % 11/19/22 10:02 Eosinophils % 2 % 11/19/22 10:02 Basophils % 0 % 11/19/22 10:02 Neutrophils # 7.5 k/uL (1.3-7.7) 11/19/22 10:02 Lymphocytes # 2.8 k/uL (1.0-4.8) 11/19/22 10:02 Monocytes # 0.7 k/uL (0-1.0) 11/19/22 10:02 Eosinophils # 0.3 k/uL (0-0.7) 11/19/22 10:02 Basophils # 0.1 k/uL (0-0.2) 11/19/22 10:02 Sodium 139 mmol/L (137-145) 11/19/22 10:02 Potassium 4.5 mmol/L (3.5-5.1) 11/19/22 10:02 Chloride 104 mmol/L (98-107) 11/19/22 10:02 Carbon Dioxide 23 mmol/L (22-30) 11/19/22 10:02 Anion Gap 12 mmol/L 11/19/22 10:02 BUN 18 mg/dL (9-20) 11/19/22 10:02 Creatinine 0.86 mg/dL (0.66-1.25) 11/19/22 10:02 Est GFR (CKD-EPI)AfAm >90 (>60 ml/min/1.73 sqM) 11/19/22 10:02 Est GFR (CKD-EPI)NonAf >90 (>60 ml/min/1.73 sqM) 11/19/22 10:02 Glucose 117 mg/dL (74-99) H 11/19/22 10:[address] Glu mg/dL 120 mg/dL 11/19/22 10:02 Hemoglobin A1c 5.8 % (<=6.0) 11/19/22 10:02 Calcium 9.9 mg/dL (8.4-10.2) 11/19/22 10:02 Total Bilirubin 0.5 mg/dL (0.2-1.3) 11/19/22 10:02 AST 28 U/L (17-59) 11/19/22 10:02 ALT 31 U/L (4-49) 11/19/22 10:02 Alkaline Phosphatase 78 U/L (38-126) 11/19/22 10:02 Total Protein 7.6 g/dL (6.3-8.2) 11/19/22 10:02 Albumin 4.4 g/dL (3.5-5.0) 11/19/22 10:02 Triglycerides 352.00 mg/dL (0.00-149.00) H 11/19/22 10:02 Cholesterol 240.00 mg/dL (0.00-200.00) H 11/19/22 10:02 LDL Cholesterol, Calc 136.4 mg/dL (0.0-131.0) H 11/19/22 10:02 VLDL Cholesterol, Calc 70.40 mg/dL (5.00-40.00) H 11/19/22 10:02 HDL Cholesterol 33.20 mg/dL (40.00-60.00) L 11/19/22 10:02 Cholesterol/HDL Ratio 7.23 Ratio 11/19/22 10:02 TSH 1.520 mIU/L (0.465-4.680) 11/19/22 10:02 Urine Opiates Screen Not Detected (NotDetected) 11/17/22 18:48 Ur Oxycodone Screen Not Detected (NotDetected) 11/17/22 18:48 Urine Methadone Screen Not Detected (NotDetected) 11/17/22 18:48 Ur Propoxyphene Screen Not Detected (NotDetected) 11/17/22 18:48 Ur Barbiturates Screen Not Detected (NotDetected) 11/17/22 18:48 U Tricyclic Antidepress Not Detected (NotDetected) 11/17/22 18:48 Ur Phencyclidine Scrn Not Detected (NotDetected) 11/17/22 18:48 Ur Amphetamines Screen Not Detected (NotDetected) 11/17/22 18:48 U Methamphetamines Scrn Not Detected (NotDetected) 11/17/22 18:48 U Benzodiazepines Scrn Not Detected (NotDetected) 11/17/22 18:48 Urine Cocaine Screen Not Detected (NotDetected) 11/17/22 18:48 U Marijuana (THC) Screen Not Detected (NotDetected) 11/17/22 18:48 Coronavirus (PCR) Not Detected (Not Detectd) 11/18/22 15:20 Vital Signs Temp 97.6 F 11/25/22 06:52 Pulse 116 H 11/25/22 08:59 Resp 14 11/25/22 06:52 BP 130/93 11/25/22 08:59 Pulse Ox 99 11/18/22 06:49 FiO2 Patient Condition at Discharge: Stable Plan - Discharge Summary Discharge Rx Participant: No New Discharge Prescriptions: New Divalproex [Depakote] 1,000 mg PO HS 30 Days #60 tab traZODone HCL [Desyrel] 50 mg PO HS PRN 30 Days #30 tab PRN Reason: Insomnia Nicotine 21Mg/24Hr Patch [Habitrol] 1 patch TRANSDERM DAILY 14 Days #14 patch Metoprolol Succinate (ER) [Toprol XL] 25 mg PO DAILY 30 Days #30 tab hydrOXYzine pamoate [Vistaril] 50 mg PO DAILY PRN 30 Days #60 cap PRN Reason: Insomnia OLANZapine [ZyPREXA] 10 mg PO HS 30 Days #30 tab Discharge Medication List Divalproex [Depakote] 1,000 mg PO HS 30 Days #60 tab 11/25/22 [Rx] Metoprolol Succinate (ER) [Toprol XL] 25 mg PO DAILY 30 Days #30 tab 11/25/22 [Rx] Nicotine 21Mg/24Hr Patch [Habitrol] 1 patch TRANSDERM DAILY 14 Days #14 patch 11/25/22 [Rx] OLANZapine [ZyPREXA] 10 mg PO HS 30 Days #30 tab 11/25/22 [Rx] hydrOXYzine pamoate [Vistaril] 50 mg PO DAILY PRN 30 Days #60 cap 11/25/22 [Rx] traZODone HCL [Desyrel] 50 mg PO HS PRN 30 Days #30 tab 11/25/22 [Rx] Follow up Appointment(s)/Referral(s): None,Stated [Primary Care Provider] - 1-2 days Discharge Disposition: HOME SELF-CARE
== END 2022-11-25 16:20 | disposition home or self-care (01) | DRG 753 ==
LOC: EC 16:55 → 3MHU 11-18 16:01
PROVIDERS: ADMIT Psychiatry & Neurology Psychiatry; ATTEND Psychiatry & Neurology Psychiatry
DX: F31.9 Bipolar disorder, unspecified (principal); F43.22 Adjustment disorder with anxiety; F17.200 Nicotine dependence, unspecified, uncomplicated; R45.851 Suicidal ideations; Z79.899 Other long term (current) drug therapy; Z87.442 Personal history of urinary calculi
CPT/HCPCS: 80053; 80061; 80306; 82075; 83036; 84443; 85025; 87635; 99285

== ENCOUNTER 2022-12-02 14:35 | Emergency (ER) | payer OTHER ==
--- NOTE | 2022-12-02 16:24 | ED ---
Psych HPI - General Chief Complaint: Psychiatric Symptoms Stated Complaint: Petitioned Time Seen by Provider: 12/02/22 15:22 Source: patient, RN notes reviewed, old records reviewed Mode of arrival: ambulatory Limitations: no limitations - History of Present Illness Initial Comments: This is a 42-year-old male to the emergency department for evaluation today. Patient presents today for evaluation of psychiatric illness patient is under quarter petition for psychiatric evaluation and treatment MD Complaint: suicidal ideation, feels depressed -: minutes(s) Associated Psychiatric Symptoms: depression, suicidal ideation History of same: Yes Quality: constant Improves With: none Context: not taking psychiatric medications Associated Symptoms: denies other symptoms Treatments Prior to Arrival: placed on mental health hold - Related Data Home Medications Medication Instructions Recorded Confirmed Metoprolol Succinate (ER) [Toprol 25 mg PO DIRECTED 12/02/22 12/03/22 XL] Nicotine 21Mg/24Hr Patch [Habitrol] 1 patch TRANSDERM DIRECTED 12/02/22 12/03/22 OLANZapine [ZyPREXA] 10 mg PO DIRECTED 12/02/22 12/03/22 hydrOXYzine pamoate [Vistaril] 50 mg PO DIRECTED PRN 12/02/22 12/03/22 Previous Rx's Medication Instructions Recorded Divalproex [Depakote] 1,000 mg PO HS 30 Days #60 tab 11/25/22 traZODone HCL [Desyrel] 50 mg PO HS PRN 30 Days #30 tab 11/25/22 Allergies Allergy/AdvReac Type Severity Reaction Status Date / Time No Known Allergies Allergy Verified 12/03/22 16:25 Review of Systems ROS Statement: Those systems with pertinent positive or pertinent negative responses have been documented in the HPI. ROS Other: All systems not noted in ROS Statement are negative. Past Medical History Past Medical History: GERD/Reflux, Renal Disease Additional Past Medical History / Comment(s): kidney stones, small hiatal hernia History of Any Multi-Drug Resistant Organisms: None Reported Past Surgical History: No Surgical Hx Reported Additional Past Surgical History / Comment(s): EGD, colonoscopies Past Anesthesia/Blood Transfusion Reactions: No Reported Reaction, Motion Sickness Past Psychological History: ADD/ADHD, Anxiety, Depression Smoking Status: Vaper Past Alcohol Use History: None Reported Past Drug Use History: None Reported - Past Family History Father Family Medical History: No Reported History Additional Family Medical History / Comment(s): Father is healthy Mother Family Medical History: No Reported History Additional Family Medical History / Comment(s): Mother is healthy General Exam General appearance: alert, in no apparent distress Head exam: Present: atraumatic, normocephalic, normal inspection Eye exam: Present: normal appearance, PERRL, EOMI. Absent: scleral icterus, conjunctival injection, periorbital swelling ENT exam: Present: normal exam, mucous membranes moist Neck exam: Present: normal inspection. Absent: tenderness, meningismus, lympha denopathy Respiratory exam: Present: normal lung sounds bilaterally. Absent: respiratory distress, wheezes, rales, rhonchi, stridor Cardiovascular Exam: Present: regular rate, normal rhythm, normal heart sounds. Absent: systolic murmur, diastolic murmur, rubs, gallop, clicks GI/Abdominal exam: Present: soft, normal bowel sounds. Absent: distended, tenderness, guarding, rebound, rigid Extremities exam: Present: normal inspection, full ROM, normal capillary refill. Absent: tenderness, pedal edema, joint swelling, calf tenderness Back exam: Present: normal inspection Neurological exam: Present: alert, oriented X3, CN II-XII intact Psychiatric exam: Present: normal affect, normal mood Skin exam: Present: warm, dry, intact, normal color. Absent: rash Course Vital Signs 12/02/22 12/03/22 14:53 00:21 Temperature 99.0 F 98.6 F Pulse Rate 119 H 100 Respiratory 18 17 Rate Blood Pressure 143/103 145/95 O2 Sat by Pulse 95 97 Oximetry - Reevaluation(s) Reevaluation #1: 12/02/22 17:36 Medical records reviewed Reevaluation #2: 12/02/22 17:36 medical clear for psychiatric evaluation Medical Decision Making - Medical Decision Making 42 male be transferred for inpatient psychiatric evaluation and treatment - Lab Data Result diagrams: 12/02/22 21:37 12/02/22 21:37 Lab Results 12/02/22 12/02/22 12/02/22 Range/Units 21:37 21:37 21:37 WBC 13.5 H (3.8-10.6) k/uL RBC 4.73 (4.30-5.90) m/uL Hgb 13.8 (13.0-17.5) gm/dL Hct 41.9 (39.0-53.0) % MCV 88.6 (80.0-100.0) fL MCH 29.2 (25.0-35.0) pg MCHC 32.9 (31.0-37.0) g/dL RDW 13.5 (11.5-15.5) % Plt Count 361 (150-450) k/uL MPV 7.8 Neutrophils % 68 % Lymphocytes % 22 % Monocytes % 7 % Eosinophils % 2 % Basophils % 0 % Neutrophils # 9.1 H (1.3-7.7) k/uL Lymphocytes # 2.9 (1.0-4.8) k/uL Monocytes # 0.9 (0-1.0) k/uL Eosinophils # 0.3 (0-0.7) k/uL Basophils # 0.0 (0-0.2) k/uL Sodium 138 (137-145) mmol/L Potassium 4.5 (3.5-5.1) mmol/L Chloride 106 (98-107) mmol/L Carbon Dioxide 20 L (22-30) mmol/L Anion Gap 12 mmol/L BUN 22 H (9-20) mg/dL Creatinine 0.87 (0.66-1.25) mg/dL Est GFR (CKD-EPI)AfAm >90 (>60 ml/min/1.73 sqM) Est GFR (CKD-EPI)NonAf >90 (>60 ml/min/1.73 sqM) Glucose 103 H (74-99) mg/dL Calcium 9.7 (8.4-10.2) mg/dL Total Bilirubin 0.2 (0.2-1.3) mg/dL AST 31 (17-59) U/L ALT 37 (4-49) U/L Alkaline Phosphatase 75 (38-126) U/L Total Protein 7.5 (6.3-8.2) g/dL Albumin 4.4 (3.5-5.0) g/dL Urine Color Yellow Urine Appearance Clear (Clear) Urine pH 5.5 (5.0-8.0) Ur Specific [place] 1.020 (1.001-1.035) Urine Protein Negative (Negative) Urine Glucose (UA) Negative (Negative) Urine Ketones Negative (Negative) Urine Blood Small (Negative) Urine Nitrite Negative (Negative) Urine Bilirubin Negative (Negative) Urine Urobilinogen <2.0 (<2.0) mg/dL Ur Leukocyte Esterase Negative (Negative) Urine RBC 2 (0-5) /hpf Urine WBC 1 (0-5) /hpf Ur Squamous Epith Cells <1 (0-4) /hpf Urine Bacteria Rare H (None) /hpf Urine Mucus Moderate H (None) /hpf Urine Opiates Screen Not Detected (NotDetected) Ur Oxycodone Screen Not Detected (NotDetected) Urine Methadone Screen Not Detected (NotDetected) Ur Propoxyphene Screen Not Detected (NotDetected) Ur Barbiturates Screen Not Detected (NotDetected) U Tricyclic Antidepress Not Detected (NotDetected) Ur Phencyclidine Scrn Not Detected (NotDetected) Ur Amphetamines Screen Not Detected (NotDetected) U Methamphetamines Scrn Not Detected (NotDetected) U Benzodiazepines Scrn Not Detected (NotDetected) Urine Cocaine Screen Not Detected (NotDetected) U Marijuana (THC) Screen Not Detected (NotDetected) Coronavirus (PCR) (Not Detectd) 12/02/22 Range/Units 21:37 WBC (3.8-10.6) k/uL RBC (4.30-5.90) m/uL Hgb (13.0-17.5) gm/dL Hct (39.0-53.0) % MCV (80.0-100.0) fL MCH (25.0-35.0) pg MCHC (31.0-37.0) g/dL RDW (11.5-15.5) % Plt Count (150-450) k/uL MPV Neutrophils % % Lymphocytes % % Monocytes % % Eosinophils % % Basophils % % Neutrophils # (1.3-7.7) k/uL Lymphocytes # (1.0-4.8) k/uL Monocytes # (0-1.0) k/uL Eosinophils # (0-0.7) k/uL Basophils # (0-0.2) k/uL Sodium (137-145) mmol/L Potassium (3.5-5.1) mmol/L Chloride (98-107) mmol/L Carbon Dioxide (22-30) mmol/L Anion Gap mmol/L BUN (9-20) mg/dL Creatinine (0.66-1.25) mg/dL Est GFR (CKD-EPI)AfAm (>60 ml/min/1.73 sqM) Est GFR (CKD-EPI)NonAf (>60 ml/min/1.73 sqM) Glucose (74-99) mg/dL Calcium (8.4-10.2) mg/dL Total Bilirubin (0.2-1.3) mg/dL AST (17-59) U/L ALT (4-49) U/L Alkaline Phosphatase (38-126) U/L Total Protein (6.3-8.2) g/dL Albumin (3.5-5.0) g/dL Urine Color Urine Appearance (Clear) Urine pH (5.0-8.0) Ur Specific [place] (1.001-1.035) Urine Protein (Negative) Urine Glucose (UA) (Negative) Urine Ketones (Negative) Urine Blood (Negative) Urine Nitrite (Negative) Urine Bilirubin (Negative) Urine Urobilinogen (<2.0) mg/dL Ur Leukocyte Esterase (Negative) Urine RBC (0-5) /hpf Urine WBC (0-5) /hpf Ur Squamous Epith Cells (0-4) /hpf Urine Bacteria (None) /hpf Urine Mucus (None) /hpf Urine Opiates Screen (NotDetected) Ur Oxycodone Screen (NotDetected) Urine Methadone Screen (NotDetected) Ur Propoxyphene Screen (NotDetected) Ur Barbiturates Screen (NotDetected) U Tricyclic Antidepress (NotDetected) Ur Phencyclidine Scrn (NotDetected) Ur Amphetamines Screen (NotDetected) U Methamphetamines Scrn (NotDetected) U Benzodiazepines Scrn (NotDetected) Urine Cocaine Screen (NotDetected) U Marijuana (THC) Screen (NotDetected) Coronavirus (PCR) Not Detected (Not Detectd) Disposition Clinical Impression: Psychosis, Acute psychosis, Acute anxiety, Bipolar disorder with psychotic features, Adjustment reaction of adult life Disposition: TRANSFER TO PSYCH HOSP/UNIT Condition: Fair Is patient prescribed a controlled substance at d/c from ED?: No Referrals: None,Stated [Primary Care Provider] - 1-2 days
[2022-12-02] MEDS ORDERED: LORazepam 1 MG TAB PO STA (21:15)
[2022-12-02 22:41] LABS: Basophils % (A) 0 %; Eosinophils # (A) 0.3 k/uL (0-0.7); Eosinophils % (A) 2 %; HCT 41.9 % (39.0-53.0); HGB 13.8 gm/dL (13.0-17.5); Lymphocytes # (A) 2.9 k/uL (1.0-4.8); Lymphocytes % (A) 22 %; MCH 29.2 pg (25.0-35.0); MCHC 32.9 g/dL (31.0-37.0); MCV 88.6 fL (80.0-100.0); Mean Platelet Volume 7.8; Monocytes # (A) 0.9 k/uL (0-1.0); Monocytes % (A) 7 %; Neutrophils # (A) 9.1 k/uL (1.3-7.7); Neutrophils % (A) 68 %; Platelet Count 361 k/uL (150-450); RBC 4.73 m/uL (4.30-5.90); RDW 13.5 % (11.5-15.5); WBC 13.5 k/uL (3.8-10.6)
[2022-12-02 22:44] LABS: Color,Urine Yellow
[2022-12-02 22:45] LABS: Appearance,Urine Clear (Clear); Bilirubin,Urine Negative (Negative); Blood,Urine Small (Negative); Glucose,Urine (UA) Negative (Negative); Ketones,Urine Negative (Negative); Leukocyte Esterase,Urine Negative (Negative); Nitrite,Urine Negative (Negative); PH, Urine 5.5 (5.0-8.0); Protein,Urine Negative (Negative); Urobilinogen,Urine <2.0 mg/dL (<2.0)
[2022-12-02 22:46] LABS: Amphetamine Screen,Urine Not Detected (NotDetected); Barbiturate Screen,Urine Not Detected (NotDetected); Benzodiazepines Screen,Urine Not Detected (NotDetected); Cocaine Screen,Urine Not Detected (NotDetected); Methadone Screen, Urine Not Detected (NotDetected); Opiate Screen,Urine Not Detected (NotDetected); Oxycodone Screen, Urine Not Detected (NotDetected); Phencyclidine Screen,Urine Not Detected (NotDetected); Tricyclic Antidepressant,Urine Not Detected (NotDetected); Urn Cannabinoid Scrn Not Detected (NotDetected)
[2022-12-02 22:47] LABS: Bacteria,Urine Rare /hpf; Mucus,Urine Moderate /hpf; RBC,Urine 2 /hpf (0-5); Squamous Epithelial Cell,Urine <1 /hpf (0-4); WBC,Urine 1 /hpf (0-5)
[2022-12-02 23:11] LABS: AST 31 U/L (17-59); African American GFR (CKD) >90 (>60 ml/min/1.73 sqM); Albumin 4.4 g/dL (3.5-5.0); Alkaline Phosphatase 75 U/L (38-126); Blood Urea Nitrogen 22 mg/dL (9-20); Calcium 9.7 mg/dL (8.4-10.2); Carbon Dioxide 20 mmol/L (22-30); Chloride 106 mmol/L (98-107); Glucose 103 mg/dL (74-99); Non-African American GFR(CKD) >90 (>60 ml/min/1.73 sqM); Total Bilirubin 0.2 mg/dL (0.2-1.3); Total Protein 7.5 g/dL (6.3-8.2)
[2022-12-02 23:28] LABS: Anion Gap 12 mmol/L; Potassium 4.5 mmol/L (3.5-5.1); Sodium 138 mmol/L (137-145)
[2022-12-02 23:51] LABS: ALT 37 U/L (4-49)
[2022-12-03] MEDS ORDERED: LORazepam 1 MG TAB PO STA (00:05)
[2022-12-03 00:27] VITALS: BP 145/95; PULSE 100; RESP 17; TEMP 98.6
== END 2022-12-03 08:44 ==
LOC: EC 14:35
DX: F23 Brief psychotic disorder (principal); F31.9 Bipolar disorder, unspecified; F43.22 Adjustment disorder with anxiety; K21.9 Gastro-esophageal reflux disease without esophagitis; F17.290 Nicotine dependence, other tobacco product, uncomplicated; Z79.899 Other long term (current) drug therapy; Z20.822 Contact with and (suspected) exposure to COVID-19
CPT/HCPCS: 36415; 80053; 80306; 81001; 82075; 85025; 87635; 99285

== ENCOUNTER 2022-12-03 11:40 | Inpatient (IN) | payer MEDICAID, OTHER ==
--- NOTE | 2022-12-03 11:53 | ED ---
Psych HPI - General Chief Complaint: Psychiatric Symptoms Stated Complaint: MENTAL Time Seen by Provider: 12/03/22 11:51 Source: patient, family, EMS, RN notes reviewed Mode of arrival: EMS Limitations: no limitations - History of Present Illness Initial Comments: This is a 42-year-old male who presents tp the emergency department for psychiatric evaluation. Patient was brought here yesterday and petitioned by his father for psychiatric evaluation. Patient had been sending videos to people saying that he was going to harm them, as he had thought that people were trying to kill him. He also believes that his father is trying to kill him and states that this is being investigated by the FBI. Patient was discharged from the mental health unit here on 11/25/22, but has stopped taking his medications aside from trazodone on occasions, because he does not believe that he needs them. Currently denies any auditory or visual hallucinations. Also denies any suicidal ideations. He ended up being discharged this morning to [facility] for inpatient care, however EMS states that when they arrived with the patient, they were told that he actually was not accepted there, and he was subsequently brought back to our facility. Per EPS report from yesterday, patient was going to be admitted on an involuntary basis for psychosis and delusions. - Related Data Home Medications Medication Instructions Recorded Confirmed Metoprolol Succinate (ER) [Toprol 25 mg PO DIRECTED 12/02/22 12/03/22 XL] Nicotine 21Mg/24Hr Patch [Habitrol] 1 patch TRANSDERM DIRECTED 12/02/22 12/03/22 OLANZapine [ZyPREXA] 10 mg PO DIRECTED 12/02/22 12/03/22 hydrOXYzine pamoate [Vistaril] 50 mg PO DIRECTED PRN 12/02/22 12/03/22 Previous Rx's Medication Instructions Recorded Divalproex [Depakote] 1,000 mg PO HS 30 Days #60 tab 11/25/22 traZODone HCL [Desyrel] 50 mg PO HS PRN 30 Days #30 tab 11/25/22 Allergies Allergy/AdvReac Type Severity Reaction Status Date / Time No Known Allergies Allergy Verified 12/02/22 18:00 Review of Systems ROS Statement: Those systems with pertinent positive or pertinent negative responses have been documented in the HPI. ROS Other: All systems not noted in ROS Statement are negative. Past Medical History Past Medical History: GERD/Reflux, Renal Disease Additional Past Medical History / Comment(s): kidney stones, small hiatal hernia History of Any Multi-Drug Resistant Organisms: None Reported Past Surgical History: No Surgical Hx Reported Additional Past Surgical History / Comment(s): EGD, colonoscopies Past Anesthesia/Blood Transfusion Reactions: No Reported Reaction, Motion Sickness Past Psychological History: ADD/ADHD, Anxiety, Depression Smoking Status: Vaper Past Alcohol Use History: None Reported Past Drug Use History: None Reported - Past Family History Father Family Medical History: No Reported History Additional Family Medical History / Comment(s): Father is healthy Mother Family Medical History: No Reported History Additional Family Medical History / Comment(s): Mother is healthy General Exam Limitations: no limitations General appearance: alert, in no apparent distress Head exam: Present: atraumatic, normocephalic, normal inspection Respiratory exam: Present: normal lung sounds bilaterally. Absent: respiratory distress, wheezes, rales, rhonchi, stridor Cardiovascular Exam: Present: regular rate, normal rhythm, normal heart sounds. Absent: systolic murmur, diastolic murmur, rubs, gallop, clicks Neurological exam: Present: alert, oriented X3, CN II-XII intact Expanded Focused psych exam: Present: delusional, restlessness Skin exam: Present: warm, dry, intact, normal color. Absent: rash Course Vital Signs 12/03/22 12/03/22 12:00 12:53 Temperature 98.7 F Pulse Rate 118 H 110 H Respiratory 18 18 Rate Blood Pressure 138/103 134/80 O2 Sat by Pulse 99 99 Oximetry Medical Decision Making - Medical Decision Making This is a 42-year-old male who presents to the emergency department for psychiatric evaluation. Was pt. sent in by a medical professional or institution? @ -No Did you speak to anyone other than the patient for history? @ -EMS provided the majority of the information Did you review nursing and triage notes? @ -Yes, and I agree, it is accurate with regards to the patient's symptoms. Were old charts reviewed? @ -Yes, EPS report from yesterday discussing the patient's presentation and that he will be admitted on an involuntary basis for psychosis and delusions. Differential Diagnosis? @ -Differential Mental Health: Depression, anxiety, bipolar, psychosis, schizophrenia, borderline personality, situational depression, adjustment disorder, behavioral disorder, brain tumor, malingering, substance abuse, encephalopathy, medication reaction, dementia, hypothyroidism, degenerative neurologic disorder, lupus.... This is not meant to be all-inclusive list EKG interpreted by me (3pts min.)? @ -Not obtained X-rays interpreted by me (1pt min.)? @ -Not obtained CT interpreted by me (1pt min.)? @ -Not obtained U/S interpreted by me (1pt. min.)? @ -Not obtained What testing was considered but not performed? (CT, X-rays, U/S, labs)? Why? @ -None What meds were considered but not given? Why? @ -None Did you discuss the management of the patient with other professionals? @ -Yes, EPS, who advised that the patient could be admitted to [facility] here. Did you reconcile home meds? @ -No Was smoking cessation discussed for >3mins.? @ -No Was critical care preformed (if so, how long)? @ -No Were there social determinants of health that impacted care today? How? (Homelessness, low income, unemployed, alcoholism, drug addiction, transportation, low edu. Level, literacy, decrease access to med. care, skilled nursing, rehab)? @ -No Was there de-escalation of care discussed even if they declined? (Discuss DNR or withdrawal of care, Hospice)? @ -No What co-morbidities impacted this encounter? (DM, HTN, Smoking, COPD, CAD, Cancer, CVA, Hep., AIDS, mental health diagnosis, sleep apnea, morbid obesity)? @ -Psychiatric problems Was patient admitted / discharged? @ -Admitted. Patient brought directly back here from [facility] by EMS after discovering that the patient was actually not accepted there. This was discussed with EPS, who advised that a bed opened up on [facility] and the patient could be admitted there. He was given Ativan and a nicotine patch in the emergency department. All lab work and testing had been previously completed yesterday. We did repeat a Covid test which was negative. Patient admitted to [facility] in stable condition. Undiagnosed new problem with uncertain prognosis? @ -None Drug Therapy requiring intensive monitoring for toxicity (Heparin, Nitro, Insulin, Cardizem)? @ -None Were any procedures done? @ -None Diagnosis/symptom? @ -Psychosis Acute, or Chronic, or Acute on Chronic? @ -Acute Uncomplicated (without systemic symptoms) or Complicated (systemic symptoms)? @ -Uncomplicated Side effects of treatment? @ -None Exacerbation, Progression, or Severe Exacerbation] @ -Not applicable Poses a threat to life or bodily function? @ -Yes This case was discussed in detail with the attending ED physician, Dr. Brown Presentation, findings, and treatment plan discussed in detail as well. - Lab Data Lab Results 12/03/22 Range/Units 12:17 Coronavirus (PCR) Not Detected (Not Detectd) Disposition Clinical Impression: Acute psychosis, Delusions Disposition: ADMITTED IP TO THIS HOSP
[2022-12-03] MEDS ORDERED: LORazepam 1 MG TAB PO STA (12:08)
[2022-12-03] MEDS ORDERED: NICOTINE 14MG/24HR PATCH TRANSDERM STA (12:08)
[2022-12-03] MEDS ORDERED: MAGNESIUM HYDROXIDE 2,400 MG/30 ML CUP PO PRN (13:41)
[2022-12-03] MEDS ORDERED: MAG HYDROX/AL HYDROX/SIMETH 30 ML CUP PO PRN (13:41)
[2022-12-03] MEDS ORDERED: traZODone HCL 50 MG TAB PO PRN (13:43)
[2022-12-03] MEDS ORDERED: LORazepam 2 MG/ML INJ IM PRN (13:45)
[2022-12-03] MEDS ORDERED: HALOPERIDOL LACTATE 5 MG/ML 1 ML VIAL IM PRN (13:45)
[2022-12-03] MEDS: LORazepam 1 MG TAB PO PRN ×2 (15:55→21:56)
[2022-12-03] MEDS ORDERED: OLANZapine 10 MG TAB PO SCH (21:00)
[2022-12-03] MEDS ORDERED: DIVALPROEX 500 MG TABLET.DR PO SCH (21:00)
--- NOTE | 2022-12-04 03:16 | P.PN ---
Progress Note - Text Progress Note Date: 12/04/22 Attempted to see the patient in the MHU. Informed by the MHU RN that the patient was sedated and is inappropriate for evaluation at this time. Will attempt again tomorrow.
[2022-12-04] MEDS: METOPROLOL SUCCINATE (ER) 25 MG TAB.ER.24H PO SCH (08:28)
[2022-12-04] MEDS: LORazepam 1 MG TAB PO PRN ×2 (08:28→18:43)
[2022-12-04] MEDS: NICOTINE 14MG/24HR PATCH TRANSDERM SCH (08:28)
[2022-12-04] MEDS: PALIPERIDONE 3 MG TAB.ER.24 PO SCH ×2 (11:51→20:58)
--- NOTE | 2022-12-04 11:54 | P.HP ---
Psychiatric H&P - . H&P Date: 12/04/22 History & Physical: Allergies Allergy/AdvReac Type Severity Reaction Status Date / Time No Known Allergies Allergy Verified 12/03/22 16:25 Vital Signs Temp 97.4 F L 12/04/22 06:47 Pulse 110 H 12/04/22 08:30 Resp 20 12/03/22 16:07 BP 139/86 12/04/22 08:30 Pulse Ox 98 12/03/22 16:07 FiO2 Intake & Output 12/03/22 12/04/22 12/04/22 18:59 06:59 18:59 Weight 105.233 kg Laboratory Last Values Coronavirus (PCR) Not Detected (Not Detectd) 12/03/22 12:17 12/04/22 11:27 Identifying Data: Rishi Menon is a 42-year-old male with a PMH of bipolar disorder and ADHD who was brought to the emergency room under police custody after petitioned him, admittied involuntarily, no kids, unemployed. HPI: The patient presented to the hospital on a petition and a court order for pickup from the father. The petition states that patient has been fairly delusional, attempting to work with the FBI, abusing inhalants, making threats and psychotic at home. Patient was recently discharged from the mental health unit 9 days ago. Patient at that time was started on Zyprexa and Depakote trazodone and Vistaril and improved. Patient went home and apparently shaved his head right away and stop taking medications, did not go to his [facility] intake appointment. Patient was seen today in agreeable to speak to loan underwriter. He states that "I'm here because my father and sister craopaly" he states that they have been trying to get him into the hospital however states that "I'm going to cornell them so that they can go to assisted". He believes that his father is a "narcissist" and his sis ter is a "drug addict and a crack head". He claims that nothing is true on the petition or the paperwork. He was endorsing paranoia. He has very poor insight poor decision making skills, believes that he does not need mental health treatment or medications. He states that he is working with the FBI and wrote them a "100 page email" about his father and his sister plotting against him. He claims that his sleep and appetite are fair. This time he is not reporting any auditory or visual hallucinations. Denying any suicidal or homicidal ideations intent or plan. He is not reporting any drug use however does use nicotine products, also petition states that patient has been abusing inhalants such as nitrous oxide. Past history personal and social history Patient was previously admitted to the mental health unit and discharged on 11/25/22. Patient has a history of psychosis, inhalant abuse. He is currently living with his father, and a house, he denies having any kids. He is currently unemployed. 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 He claims that he went to assisted however did not report why. Substance use history: Patient has denied any substance use and his drug screening also appears to be negative. according to petition patient is apparently abusing nitrous oxide. Past medical Hx; denies Family HX: Believes that his father is a "narcissist", and that his sister is a "drug addict". Mental status examination: General Appearance: Patient appears to be somewhat heavyset male, shaved head, wearing a hospital gown. Behavior: Patient is anxious but redirectable and is cooperative. Paranoia, Speech: Patient's speech is somewhat pressured Mood/Affect: Patient reports their mood is "fine" affect is congruent and constricted. Suicidality/Homicidality: Patient denies having any homicidal ideation intent or plan. Denies any suicidal ideation, intent or plan today. Perceptions: Patient denies any visual hallucinations and denies any auditory hallucinations. Though content/process: Patient exhibits paranoia projection rationalization, tangential, loose associations. Preoccupied with his father and his sister. Memory and concentration: AOX3, grossly intact for the purposes of this session Judgment and insight: poor IMPRESSIONS: Psychosis unspecified, likely schizoaffective disorder vs. schizophrenia inhalant abuse nicotine dependence PLAN: -Patient is admitted under involuntary status to MHU for stabilization of psychiatric symptoms and safety. Mess Attendant completed a second certificate and will be faxed to the courts today to commence involuntary process. -Medications: Start paliperidone by mouth 3 mg twice a day for psychosis/mood stabilization, trazodone 50 mg daily at bedtime when necessary for insomnia. -Ativan and Haldol PRN for agitation/aggression -NRT - nicotine patch -SW on board for discharge planning. Encourage patient to participate in groups to work on coping skills. completed second cert, will await deferral and court hearing date. 12/04/22 11:42
[2022-12-04] MEDS: traZODone HCL 50 MG TAB PO PRN (20:59)
--- NOTE | 2022-12-04 22:43 | P.CONS ---
History of Present Illness - Reason for Consult Consult date: 12/04/22 - History of Present Illness The patient is a 42-year-old male with a PMH of bipolar disorder and ADHD who was brought into the emergency room under police custody after his family petitioned him and he was admitted involuntarily. The patient had reportedly been making threats, acting erratically and delusional. He was admitted to the mental health unit where he was evaluated. The patient reports that his sister is out to poison his relationship with his father as she is trying to steal the [employer] business. He denied any physical complaints at the time of interview. Does report vape use. Denied experiencing chest discomfort, shortness of breath, fever, chills, cough, nausea, vomiting, abdominal pain, diarrhea. Review of systems: Pertinent positives and negatives as discussed in HPI, a complete review of s ystems was performed and all other systems are negative. Physical examination: General: non toxic, no distress, appears at stated age, obese Derm: no unusual rashes/lesions, no unusual ecchymoses, warm, dry Head: atraumatic, normocephalic, symmetric Eyes: EOMI, no lid lag, anicteric sclera ENT: Nose and ears atraumatic, no thrush, no pharyngeal erythema Neck: trachea midline, supple Mouth: no lip lesion, mucus membranes moist Cardiovascular: S1S2 reg, no murmur, no edema Lungs: CTA bilateral, no rhonchi, no rales , no accessory muscle use Abdominal: soft, nontender to palpation, no guarding Ext: no gross muscle atrophy, no contractures, Neuro: No gross focal neuro deficits noted Psych: Alert, oriented Assessment: Tobacco abuse Psychosis Imaging: None performed Data Review: Laboratory evaluation thus far reviewed with coronavirus PCR negative Plan: Advised on importance of cessation from tobacco use Defer management of psychosis to primary psychiatry service Thank you for allowing us to participate in the care of this patient. We will follow peripherally. Do not hesitate to contact us with questions. Someone can be reached from the [facility] hospitalist group at all hours of the day at [phone]. Past Medical History Past Medical History: GERD/Reflux, Renal Disease Additional Past Medical History / Comment(s): kidney stones, small hiatal hernia History of Any Multi-Drug Resistant Organisms: None Reported Past Surgical History: No Surgical Hx Reported Additional Past Surgical History / Comment(s): EGD, colonoscopies Past Anesthesia/Blood Transfusion Reactions: No Reported Reaction, Motion Sickness Past Psychological History: ADD/ADHD, Anxiety, Depression Additional Psychological History / Comment(s): Pt resides with his parents. He drives. He denies any thoughts/plans of suicide. He states his father is trying to get him into trouble but does not elaborate. Smoking Status: Vaper Past Alcohol Use History: None Reported Additional Past Alcohol Use History / Comment(s): Pt started smoking as a teen. Past Drug Use History: None Reported - Past Family History Father Family Medical History: No Reported History Additional Family Medical History / Comment(s): Father is healthy Mother Family Medical History: No Reported History Additional Family Medical History / Comment(s): Mother is healthy Medications and Allergies Home Medications Medication Instructions Recorded Confirmed Type Divalproex [Depakote] 1,000 mg PO HS 30 Days #60 tab 11/25/22 12/03/22 Rx traZODone HCL [Desyrel] 50 mg PO HS PRN 30 Days #30 tab 11/25/22 12/03/22 Rx Metoprolol Succinate (ER) [Toprol 25 mg PO DIRECTED 12/02/22 12/03/22 History XL] Nicotine 21Mg/24Hr Patch [Habitrol] 1 patch TRANSDERM DIRECTED 12/02/22 12/03/22 History OLANZapine [ZyPREXA] 10 mg PO DIRECTED 12/02/22 12/03/22 History hydrOXYzine pamoate [Vistaril] 50 mg PO DIRECTED PRN 12/02/22 12/03/22 History Allergies Allergy/AdvReac Type Severity Reaction Status Date / Time No Known Allergies Allergy Verified 12/03/22 16:25 Physical Exam Vitals: Vital Signs Temp Pulse Pulse BP BP 12/04/22 18:44 115 H 142/93 12/04/22 11:52 103 H 139/104 12/04/22 08:30 110 H 139/86 12/04/22 06:47 97.4 F L 87 118/64
[2022-12-05] MEDS: PALIPERIDONE 3 MG TAB.ER.24 PO SCH (07:56)
[2022-12-05] MEDS: METOPROLOL SUCCINATE (ER) 25 MG TAB.ER.24H PO SCH (07:56)
[2022-12-05] MEDS: NICOTINE 14MG/24HR PATCH TRANSDERM SCH (07:56)
[2022-12-05] MEDS: LORazepam 1 MG TAB PO PRN ×3 (07:57→22:46)
--- NOTE | 2022-12-05 18:27 | P.PN ---
Progress Note - Text Progress Note Date: 12/05/22 Interval history: Patient was directable and agreeable to speak with marketing underwriter in the office. He is talkative and tends to externalize blame for his hospitalization by blaming his family and calling them names. He reports he is experiencing "Normal stress from family commissioning me"; thinks family is "crazy and wants to cornell" them, thinks "they are psychopaths". He appears paranoid and rambles with provocotive statements. He denies wanting to harm him family, "I want to put them in intermediate, that's because they tried to kill me". He believes his family tried to kill him by defaming him. Good sleep, appetite is good. Mood is "highly stressful", states he is "fed up" with his family. At this time patient denies any suicidal or homicidal ideations intent or plan. He denies any auditory or visual hallucinations. Patient denies any side effects from the medications and has been compliant with meds. Mental status exam: General Appearance: Patient appears to be stated age, short balding hairstyle, obese, dressed in casual attire. Behavior: No agitated behavior. Patient is calm and directable, but animated. Speech: Patient's speech is fluent and non-pressured, but tends to ramble Mood/Affect: Mood is "normal stress", affect is congruent. Suicidality/Homicidality: Patient denies having any suicidal or homicidal ideation intent or plan. Perceptions: Patient denies any auditory or visual hallucinations. Though content/process: There is evidence of paranoid delusional thought content and thought process is rambling. Memory and concentration: AOX3, grossly intact for the purposes of this session Judgment and insight: poor Assessment/Plan: Continue with current diagnosis. Patient continues to meet criteria for inpatient psychiatric admission for symptom stabilization and safety. Increase Invega from 3 mg BID to 3 mg QAM/6mg QHS for psychosis and mood. Monitor for medication compliance and for any psychotropic medication side effects. Will continue to monitor ongoing response to treatment. Encouraged participation in milieu.
[2022-12-05] MEDS: traZODone HCL 50 MG TAB PO PRN (20:36)
[2022-12-05] MEDS: PALIPERIDONE 6 MG TAB.ER.24 PO SCH (20:36)
[2022-12-06] MEDS: NICOTINE 14MG/24HR PATCH TRANSDERM SCH (08:20)
[2022-12-06] MEDS: LORazepam 1 MG TAB PO PRN ×3 (08:21→20:39)
[2022-12-06] MEDS: PALIPERIDONE 3 MG TAB.ER.24 PO SCH (08:21)
--- NOTE | 2022-12-06 18:10 | P.PN ---
Progress Note - Text Progress Note Date: 12/06/22 Interval history: Patient was found resting in his bed and was directable and agreeable to speak with film writer. He reports good mood, sleep and appetite. At this time patient denies any suicidal or homicidal ideation, intent or plan. He denies any auditory or visual hallucinations. Patient denies any side effects from the medications and has been compliant with meds. When asked about his family, he states he does not want to talk to them and they can talk to his kiln operator. Mental status exam: General Appearance: Patient appears to be stated age, short balding hairstyle, obese, dressed in casual attire. Behavior: No agitated behavior. Patient is calm and directable. Speech: Patient's speech is fluent and non-pressured. Mood/Affect: Mood is "good", affect is congruent. Suicidality/Homicidality: Patient denies having any suicidal or homicidal ideation intent or plan. Perceptions: Patient denies any auditory or visual hallucinations. Though content/process: There is evidence of paranoid delusional thought content and thought process is linear. Memory and concentration: AOX3, grossly intact for the purposes of this session Judgment and insight: poor Assessment/Plan: Continue with current diagnosis. Patient continues to meet criteria for inpatient psychiatric admission for symptom stabilization and safety. Continue Invega 3 mg QAM/6mg QHS for psychosis and mood. Monitor for medication compliance and for any psychotropic medication side effects. Will continue to monitor ongoing response to treatment. Encouraged participation in milieu.
[2022-12-06] MEDS: PALIPERIDONE 6 MG TAB.ER.24 PO SCH (20:40)
[2022-12-06] MEDS: hydrOXYzine pamoate 25 MG CAP PO PRN (22:09)
[2022-12-06] MEDS: haloperidoL 5 MG TAB PO PRN (22:09)
[2022-12-07] MEDS: NICOTINE 14MG/24HR PATCH TRANSDERM SCH (08:13)
[2022-12-07] MEDS: METOPROLOL SUCCINATE (ER) 25 MG TAB.ER.24H PO SCH (08:13)
[2022-12-07] MEDS: LORazepam 1 MG TAB PO PRN ×3 (08:13→22:50)
[2022-12-07] MEDS: PALIPERIDONE 3 MG TAB.ER.24 PO SCH ×2 (08:13→20:35)
--- NOTE | 2022-12-07 11:50 | P.PN ---
Progress Note - Text Progress Note Date: 12/07/22 Interval history: Patient was seen today for psychiatric follow-up. Patient was seen in his room today and awoken from sleep. He claims that he is fine feeling mainly tired during the day. He states that he is sleeping fairly well at nighttime. He continues to have very poor insight into his condition and need for treatment. He has been taking his medications, states that he is not seen or talked to his chip crusher operator thus far. He continues to be fairly focused on "suing my father and my sister for putting me in here". He continues to speak about the FBI working on his case. He has not been interacting much, mainly isolating in his room. He is denying any depression or anxiety at this time. Denying any changes in his appetite. At this time is denying any auditory or visual hallucinations. Denying any suicidal or homicidal ideations intent or plan. Mental status examination: General Appearance: Patient appears to be somewhat heavyset male, shaved head, wearing a hospital gown. Behavior: Patient is directable, concrete, Paranoia, Speech: Patient's speech is less pressured today. Mood/Affect: Patient reports their mood is "tired" affect is congruent and constricted. Suicidality/Homicidality: Patient denies having any homicidal ideation intent or plan. Denies any suicidal ideation, intent or plan today. Perceptions: Patient denies any visual hallucinations and denies any auditory hallucinations. Though content/process: Patient exhibits paranoia projection rationalization, less tangential. Preoccupied with his father and his sister. Memory and concentration: AOX3, grossly intact for the purposes of this session Judgment and insight: poor IMPRESSIONS: Psychosis unspecified, likely schizoaffective disorder vs. schizophrenia inhalant abuse nicotine dependence PLAN: -Patient is admitted under involuntary status to MHU for stabilization of psychiatric symptoms and safety. Electric Motor Winders Assembler completed a second certificate and will be faxed to the courts today to commence involuntary process. -Medications: increase paliperidone by mouth 9 mg qhs for psychosis/mood stabil ization, trazodone 50 mg daily at bedtime when necessary for insomnia. -Ativan and Haldol PRN for agitation/aggression -NRT - nicotine patch -SW on board for discharge planning. Encourage patient to participate in groups to work on coping skills. completed second cert, will await deferral and court hearing date.
[2022-12-07] MEDS: haloperidoL 5 MG TAB PO PRN (12:12)
[2022-12-07] MEDS: traZODone HCL 50 MG TAB PO PRN (20:35)
[2022-12-08] MEDS: METOPROLOL SUCCINATE (ER) 25 MG TAB.ER.24H PO SCH (08:04)
[2022-12-08] MEDS: NICOTINE 14MG/24HR PATCH TRANSDERM SCH (08:04)
[2022-12-08] MEDS: LORazepam 1 MG TAB PO PRN ×3 (08:05→21:17)
--- NOTE | 2022-12-08 11:42 | P.PN ---
Progress Note - Text Progress Note Date: 12/08/22 Interval history: Patient was seen today for psychiatric follow-up. Patient was seen in his room today, he continues to mainly isolated in his room. He states that he is doing a bit better today, states that he spoke with the claims attorney earlier today & D deferral. He claims that "it just seemed like the right thing to do". She continues to speak negatively about his father and also his sister however was less focused on them during conversation today. He did appear to have mild improvement in his affect today. Continues to have very poor insight and judgment. He continues to speak about the FBI working on his case. When food writer spoke more about discharge planning, patient adamantly requested food writer not to contact his sister because "she's a liar" and a "bad person". He states that he will cornell food writer if he does contact her. He is denying any depression or anxiety at this time. Denying any changes in his appetite. At this time is denying any auditory or visual hallucinations. Denying any suicidal or homicidal ideations intent or plan. Mental status examination: General Appearance: Patient appears to be somewhat heavyset male, shaved head, wearing a hospital gown. Behavior: Patient is directable, concrete, Paranoia, improving mildly Speech: Patient's speech is less pressured today. Mood/Affect: Patient reports their mood is "same" affect is congruent and constricted, improving mildly Suicidality/Homicidality: Patient denies having any homicidal ideation intent or plan. Denies any suicidal ideation, intent or plan today. Perceptions: Patient denies any visual hallucinations and denies any auditory hallucinations. Though content/process: Patient exhibits paranoia projection rationalization, less tangential. less Preoccupied with his father and his sister. Memory and concentration: AOX3, grossly intact for the purposes of this session Judgment and insight: poor, improving mildly IMPRESSIONS: Psychosis unspecified, likely schizoaffective disorder vs. schizophrenia inhalant abuse nicotine dependence PLAN: -Patient is admitted under involuntary status to [facility] for stabilization of psychiatric symptoms and safety. Hearing Impaired Itinerant Teacher completed a second certificate and will be faxed to the courts today to commence involuntary process. -Medications: continue paliperidone by mouth 9 mg qhs for psychosis/mood stabilization, plan will be to transition patient onto CURRIE prior to d/c. trazodone 50 mg daily at bedtime when necessary for insomnia. -Ativan and Haldol PRN for agitation/aggression -NRT - nicotine patch -SW on board for discharge planning. Encourage patient to participate in groups to work on coping skills. patient signed deferral with claims attorney and is agreeable to treatment. possible d/c in 2-3 days, unsure if patient is allowed back home with his father.
[2022-12-08] MEDS: traZODone HCL 50 MG TAB PO PRN (20:20)
[2022-12-08] MEDS: PALIPERIDONE 3 MG TAB.ER.24 PO SCH (20:20)
[2022-12-08] MEDS: hydrOXYzine pamoate 25 MG CAP PO PRN (20:21)
[2022-12-09] MEDS: ACETAMINOPHEN TAB 325 MG TAB PO PRN (00:12)
[2022-12-09] MEDS: NICOTINE 14MG/24HR PATCH TRANSDERM SCH (08:29)
[2022-12-09] MEDS: METOPROLOL SUCCINATE (ER) 25 MG TAB.ER.24H PO SCH (08:29)
[2022-12-09] MEDS: LORazepam 1 MG TAB PO PRN ×3 (08:30→21:37)
[2022-12-09] MEDS ORDERED: PALIPERIDONE IM 234 MG/1.5 ML SYG IM STA (10:00)
--- NOTE | 2022-12-09 10:07 | P.PN ---
Progress Note - Text Progress Note Date: 12/09/22 Interval history: Patient was seen today for psychiatric follow-up. Patient was in his room this morning and agreeable to speak to her. Patient claims that he has been taking his medication is not reporting any changes or side effects. He states that the legal paperwork yesterday claiming that he is not able to return back to his father's place. He states that "now I'm homeless". He continues to deny wanting to harm his family his father or his sister. He states that he does not know where he will be able to go at this time. He is endorsing some anxiety, mild depression at this time. He states that he was able to sleep fairly last night. He has been mainly isolative in his room at this time. He is less focused on the FBI today. Problems with his family. He continues to state that "I dont want you to talk to my sister right now, shes a bad person". Continues to have very poor insight and judgment. Denying any changes in his appetite. At this time is denying any auditory or visual hallucinations. Denying any suicidal or homicidal ideations intent or plan. Mental status examination: General Appearance: Patient appears to be somewhat heavyset male, shaved head, wearing a hospital gown. Behavior: Patient is directable, less Paranoia Speech: Patient's speech is less pressured today. Mood/Affect: Patient reports their mood is "same" affect is congruent and constricted, improving mildly Suicidality/Homicidality: Patient denies having any homicidal ideation intent or plan. Denies any suicidal ideation, intent or plan today. Perceptions: Patient denies any visual hallucinations and denies any auditory hallucinations. Though content/process: Patient exhibits less paranoia, less tangential. less Preoccupied with his father and his sister. Memory and concentration: AOX3, grossly intact for the purposes of this session Judgment and insight: poor, improving mildly IMPRESSIONS: Psychosis unspecified, likely schizoaffective disorder vs. schizophrenia inhalant abuse nicotine dependence PLAN: -Patient is admitted under involuntary status to [facility] for stabilization of psychiatric symptoms and safety. Supervisor Adult Education completed a second certificate and will be faxed to the courts today to commence involuntary process. -Medications: increase paliperidone by mouth 12 mg qhs for psychosis/mood stabilization, plan will be to transition patient onto CURRIE today will order loading dose 234 mg IM. trazodone 50 mg daily at bedtime when necessary for insomnia. vistaril prn for anxiety. -Ativan and Haldol PRN for agitation/aggression -NRT - nicotine patch -SW on board for discharge planning. Encourage patient to participate in groups to work on coping skills. patient si gned deferral with patent attorney and is agreeable to treatment. possible d/c in 2-3 days if patient improves, patient is apparently not allowed back home and will need to find other accomodations for placement vs alf? patient will need a second dose of CURRIE prior to d/c.
[2022-12-09] MEDS ORDERED: PALIPERIDONE 6 MG TAB.ER.24 PO SCH (21:00)
[2022-12-09] MEDS: traZODone HCL 50 MG TAB PO PRN (23:12)
[2022-12-10] MEDS: NICOTINE 14MG/24HR PATCH TRANSDERM SCH (08:41)
[2022-12-10] MEDS: METOPROLOL SUCCINATE (ER) 25 MG TAB.ER.24H PO SCH (08:42)
[2022-12-10] MEDS: LORazepam 1 MG TAB PO PRN ×3 (08:42→22:45)
--- NOTE | 2022-12-10 11:53 | P.PN ---
Progress Note - Text Progress Note Date: 12/10/22 Interval history: Patient was seen today for psychiatric follow-up and was up wandering the [address] [place]. Patient states that he is feeling scared and does not know what to do about his living situation. He was fairly focused on where he will call and we spoke about [facility] options. He states that he does not have any other contacts. He claims that his father and sister have disrupted his "social prairie band" and she does not have much social support. He appears to be less preoccupied with his father and his sister. He claims that he is not interested in going to many groups. Claims that he take the injection yesterday and tolerated it well we spoke about the second dose which will be due on Wednesday which he is okay with. Continues to have very poor insight and judgment. Denying any changes in his appetite. At this time is denying any auditory or visual hallucinations. Denying any suicidal or homicidal ideations intent or plan. Mental status examination: General Appearance: Patient appears to be somewhat heavyset male, shaved head, wearing a hospital gown. Behavior: Patient is directable, less Paranoia Speech: Patient's speech is less pressured today. Mood/Affect: Patient reports their mood is "ok" affect is congruent and constricted, improving mildly Suicidality/Homicidality: Patient denies having any homicidal ideation intent or plan. Denies any suicidal ideation, intent or plan today. Perceptions: Patient denies any visual hallucinations and denies any auditory hallucinations. Though content/process: [place], less tangential. less Preoccupied with his father and his sister. Memory and concentration: AOX3, grossly intact for the purposes of this session Judgment and insight: Chronically poor, improving mildly IMPRESSIONS: Psychosis unspecified, likely schizoaffective disorder vs. schizophrenia inhalant abuse nicotine dependence PLAN: -Patient is admitted under involuntary status to [facility] for stabilization of psychiatric symptoms and safety. Lumber Yard Worker completed a second certificate and will be faxed to the courts today to commence involuntary process. -Medications: decrease paliperidone by mouth 9 mg qhs for psychosis/mood stabilization, given Invega sustenna loading dose 234 mg IM on 12/09 and next dose 156 mg IM to be given on wednesday morning. increase trazodone 100 mg daily at bedtime for insomnia. vistaril prn for anxiety. -Ativan and Haldol PRN for agitation/aggression -NRT - nicotine patch -SW on board for discharge planning. Encourage patient to participate in groups to work on coping skills. patient signed deferral with hedge trimmer and is agreeable to treatment. possible d/c Wednesday after patient received a second dose of Invega Sustenna, patient is apparently not allowed back home and will need to find other accomodations for placement vs [facility]?
[2022-12-10] MEDS ORDERED: PALIPERIDONE 3 MG TAB.ER.24 PO SCH (21:00)
[2022-12-10] MEDS: ACETAMINOPHEN TAB 325 MG TAB PO PRN (21:45)
[2022-12-10] MEDS: traZODone HCL 100 MG TAB PO SCH (22:44)
[2022-12-10] MEDS: hydrOXYzine pamoate 25 MG CAP PO PRN (22:45)
[2022-12-11] MEDS: METOPROLOL SUCCINATE (ER) 25 MG TAB.ER.24H PO SCH (08:07)
[2022-12-11] MEDS: NICOTINE 14MG/24HR PATCH TRANSDERM SCH (08:07)
[2022-12-11] MEDS: LORazepam 1 MG TAB PO PRN ×2 (08:37→22:47)
--- NOTE | 2022-12-11 11:12 | P.PN ---
Progress Note - Text Progress Note Date: 12/11/22 Interval history: Patient was seen today for psychiatric follow-up and was agreeable speech writ er. He continues to state that he feels anxious about where he will be calling when he is discharged. We spoke about longterm options and patient asked more questions about it, he asked if there is any other options. He appeared to be less focused/preoccupied with his family members including his father and sister. He states that he is tolerating the medications fairly well. We spoke about gradually decreasing the paliperidone by mouth and will be given the Invega Sustenna second dose Wednesday prior to discharge. He states that he has been going to some groups however not consistently. Has been up for meals. States that he is sleeping fairly well at nighttime. Mildly improving insight and judgment. Denying any changes in his appetite. At this time is denying any auditory or visual hallucinations. Denying any suicidal or homicidal ideations intent or plan. Mental status examination: General Appearance: Patient appears to be somewhat heavyset male, shaved head, wearing street clothing. Behavior: Patient is directable, less Paranoia Speech: Patient's speech is not pressured today. Mood/Affect: Patient reports their mood is "a bit better" affect is congruent and constricted, improving mildly Suicidality/Homicidality: Patient denies having any homicidal ideation intent or plan. Denies any suicidal ideation, intent or plan today. Perceptions: Patient denies any visual hallucinations and denies any auditory hallucinations. Though content/process: [place], less tangential. much less Preoccupied with his father and his sister. focused on his discharge plan. Memory and concentration: AOX3, grossly intact for the purposes of this session Judgment and insight: Chronically poor, improving mildly IMPRESSIONS: Psychosis unspecified, likely schizoaffective disorder vs. schizophrenia inhalant abuse nicotine dependence PLAN: -Patient is admitted under involuntary status to [facility] for stabilization of psychiatric symptoms and safety. Grid Caster completed a second certificate and will be faxed to the courts today to commence involuntary process. -Medications: decrease paliperidone by mouth over the weekend and will be titrated off by wednesday, given Invega sustenna loading dose 234 mg IM on 12/09 and next dose 156 mg IM to be given on wednesday morning. trazodone 100 mg daily at bedtime for insomnia. vistaril prn for anxiety. -Ativan and Haldol PRN for agitation/aggression -NRT - nicotine patch -SW on board for discharge planning. Encourage patient to participate in groups to work on coping skills. patient signed deferral with tax associate attorney and is agreeable to treatment. possible d/c Wednesday after patient received a second dose of Invega Sustenna, patient is apparently not allowed back home and will need to find other accomodations for placement vs longterm?
[2022-12-11] MEDS ORDERED: PALIPERIDONE 6 MG TAB.ER.24 PO ONE (21:00)
[2022-12-11] MEDS: traZODone HCL 100 MG TAB PO SCH (22:44)
[2022-12-11] MEDS: haloperidoL 5 MG TAB PO PRN (22:47)
[2022-12-12] MEDS: ACETAMINOPHEN TAB 325 MG TAB PO PRN ×2 (00:39→18:30)
[2022-12-12 00:56] VITALS: RESP 16
[2022-12-12] MEDS: NICOTINE 14MG/24HR PATCH TRANSDERM SCH (08:43)
[2022-12-12] MEDS: METOPROLOL SUCCINATE (ER) 25 MG TAB.ER.24H PO SCH (08:44)
[2022-12-12] MEDS: LORazepam 1 MG TAB PO PRN ×2 (08:46→23:09)
[2022-12-12] MEDS ORDERED: PALIPERIDONE 3 MG TAB.ER.24 PO ONE (21:00)
--- NOTE | 2022-12-12 21:06 | P.PN ---
Progress Note - Text Progress Note Date: 12/12/22 Interval history: The patient has been evaluated today for an established follow-up visit, co vering for Dr. Doll The chart has been reviewed, medication reconciliation completed, and the case has been discussed with the nursing staff. The patient was seen while he was lying on his bed in his room. The patient has been participating in group activities and other unit programs. The patient reports fair sleep and appetite. The patient reports continued compliance with psychiatric medication, with no reported side effects. The patient reports feeling emotionally stable and denies experiencing depression, severe anxiety, or drastic mood swings. The patient also denies having any thoughts of suicide or homicide and denies experiencing hallucinations. No delusions or manic symptoms have been reported or addressed. Mental Status Examination: Appearance: Appears stated age, adequately groomed, average body built, and no specific features. Gait/ posture: Steady gait, normal arm swinging, no abnormal movements, with relaxed posture. Attitude and Behavior: Engaged, cooperative, maintained eye contact during course of interview. Motor Activity: No psychomotor agitation or retardation. Speech: Normal rate. None pressured. Mood: " fine Affect: stable, reactive, congruent to mood, appropriate to context and situation. Thought form: Goal directed, linear, and relevant, not incoherent and no clang association. Thought content: Logical, non-delusional, denies suicidal / homicidal thoughts, intentions, or plans. Perception: Denies any auditory/ visual or tactile hallucinations. Attention: No impairment. Orientation: Oriented to time, place, person, and situation. Insight & Judgment: Fair Impulse control: Fair Assessment and Diagnosis: Psychosis unspecified, likely schizoaffective disorder vs. schizophrenia inhalant abuse nicotine dependence Plan: Continue inpatient psychiatric hospitalization. The patient continues to meet the criteria for inpatient psychiatric hospitalization as evidenced by the ongoing need for monitoring, further stabilization , and discharge planning. Continue routine monitoring, including suicide and elopement precautions. Check every 15 minutes. Educate and encourage the patient to attend groups and other therapeutic activities. Consult the medical team if any acute medical emergency arises. Continue current psychiatric medications, including: Continue tapering oral Paliperidone over the weekend with last dose on Wednesday as per primary psychiatrist. Started on Invega sustenna loading dose 234 mg IM on 12/09 and next dose 156 mg IM to be given on Wednesday morning. Trazodone 100 mg daily at bedtime for insomnia. Vistaril prn for anxiety. NRT - nicotine patch Continue PRN psychiatric medications, including:-Ativan and Haldol PRN for agitation/aggression Continue non-psychiatric medications as per the medical team's recommendations. Continue discharge planning as per social service and the primary psychiatric team's recommendations.
[2022-12-12] MEDS: traZODone HCL 100 MG TAB PO SCH (23:07)
[2022-12-13] MEDS: hydrOXYzine pamoate 25 MG CAP PO PRN ×3 (00:05→22:51)
[2022-12-13] MEDS: ACETAMINOPHEN TAB 325 MG TAB PO PRN (00:06)
[2022-12-13] MEDS: METOPROLOL SUCCINATE (ER) 25 MG TAB.ER.24H PO SCH (08:05)
[2022-12-13] MEDS: NICOTINE 14MG/24HR PATCH TRANSDERM SCH (08:05)
[2022-12-13] MEDS ORDERED: IBUPROFEN 400 MG TAB PO PRN (12:58)
--- NOTE | 2022-12-13 22:15 | P.PN ---
Progress Note - Text Progress Note Date: 12/13/22 Interval history: The patient has been evaluated today for an established follow-up visit, david pedroza for Dr. Doll The chart has been reviewed, medication reconciliation completed, and the case has been discussed with the nursing staff. The patient was seen while he was sitting on his bed in his room. The patient indicates to stability of his mood and reports no symptoms of depression, anxiety, irritability, mood swings. The patient reports fair sleep and appetite. He continued compliance with psychiatric medications and denies side effects. No reports of hallucinations, paranoid ideation, delusions, or manic symptoms. The patient reports pain in the right wisdom which he didn't get much help from Tylenol and he requested ibuprofen. I discussed with the patient and ibuprofen as when necessary and he appreciated offering him the medication. Mental Status Examination: Appearance: Appears stated age, adequately groomed, average body built, and no specific features. Gait/ posture: Steady gait, normal arm swinging, no abnormal movements, with relaxed posture. Attitude and Behavior: Engaged, cooperative, maintained eye contact during course of interview. Motor Activity: No psychomotor agitation or retardation. Speech: Normal rate. None pressured. Mood: " good Affect: stable, reactive, congruent to mood, appropriate to context and situation. Thought form: Goal directed, linear, and relevant, not incoherent and no clang association. Thought content: Logical, non-delusional, denies suicidal / homicidal thoughts, intentions, or plans. Perception: Denies any auditory/ visual or tactile hallucinations. Attention: No impairment. Orientation: Oriented to time, place, person, and situation. Insight & Judgment: Fair Impulse control: Fair Assessment and Diagnosis: Psychosis unspecified, likely schizoaffective disorder vs. schizophrenia inhalant abuse nicotine dependence Plan: Continue inpatient psychiatric hospitalization. The patient continues to meet the criteria for inpatient psychiatric hospitalization as evidenced by the ongoing need for monitoring, further stabilization , and discharge planning. Continue routine monitoring, including suicide and elopement precautions. Check every 15 minutes. Educate and encourage the patient to attend groups and other therapeutic activities. Consult the medical team if any acute medical emergency arises. Continue current psychiatric medications, including: Continue tapering oral Paliperidone over the weekend with last dose on Wednesday as per primary psychiatrist. Started on Invega sustenna loading dose 234 mg IM on 12/09 and next dose 156 mg IM to be given on Wednesday morning. Trazodone 100 mg daily at bedtime for insomnia. Vistaril prn for anxiety. NRT - nicotine patch Continue PRN psychiatric medications, including:-Ativan and Haldol PRN for agitation/aggression Continue non-psychiatric medications as per the medical team's recommendations. Ibuprofen 400 mg 3 times a day when necessary for pain Continue discharge planning as per social service and the primary psychiatric team's recommendations.
[2022-12-13] MEDS: LORazepam 1 MG TAB PO PRN (22:48)
[2022-12-13] MEDS: traZODone HCL 100 MG TAB PO SCH (22:48)
[2022-12-14 07:26] VITALS: TEMP 97.8
[2022-12-14] MEDS: NICOTINE 14MG/24HR PATCH TRANSDERM SCH (08:47)
[2022-12-14] MEDS: METOPROLOL SUCCINATE (ER) 25 MG TAB.ER.24H PO SCH (08:48)
[2022-12-14] MEDS: LORazepam 1 MG TAB PO PRN (08:49)
[2022-12-14 08:59] VITALS: BP 145/106; PULSE 114
[2022-12-14] MEDS ORDERED: PALIPERIDONE IM 156 MG/ML SYG IM ONE (09:00)
--- NOTE | 2022-12-14 11:16 | P.DS ---
Providers Date of admission: 12/03/22 13:36 Expected date of discharge: 12/14/22 Attending physician: Dillan Doll MD Consults: 12/03/22 13:41 Consult Physician Routine Consulting Provider: Mirtha Physician Consult Reason/Comments: H&P Do you want consulting provider notified?: Yes Primary care physician: Stated None - Discharge Diagnosis(es) (1) Unspecified psychosis Current Visit: Yes Status: Acute Priority: High (2) Inhalant abuse Current Visit: Yes Status: Acute Priority: High (3) Nicotine dependence Current Visit: Yes Status: Acute Priority: Low Hospital Course: Admission HPI: Admission note was completed by telegraphic typewriter operator "Rishi Menon is a 42-year-old male with a PMH of bipolar disorder and ADHD who was brought to the emergency room under police custody after petitioned him, admittied involuntarily, no kids, unemployed. The patient presented to the hospital on a petition and a court order for pickup from the father. The petition states that patient has been fairly delusional, attempting to work with the [employer], abusing inhalants, making threats and psychotic at home. Patient was recently discharged from the mental health unit 9 days ago. Patient at that time was started on Zyprexa and Depakote trazodone and Vistaril and improved. Patient went home and apparently shaved his head right away and stop taking medications, did not go to his [facility] intake appointment. Patient was seen today in agreeable to speak to telegraphic typewriter operator. He states that "I'm here because my father and sister crazy" he states that they have been trying to get him into the hospital however states that "I'm going to cornell them so that they can go to [facility]". He believes that his father is a "narcissist" and his sister is a "drug addict and a crack head". He claims that nothing is true on the petition or the paperwork. He was endorsing paranoia. He has very poor insight poor decision making skills, believes that he does not need mental health treatment or medications. He states that he is working with the [employer] and wrote them a "100 page email" about his father and his sister plo tting against him. He claims that his sleep and appetite are fair. This time he is not reporting any auditory or visual hallucinations. Denying any suicidal or homicidal ideations intent or plan. He is not reporting any drug use however does use nicotine products, also petition states that patient has been abusing inhalants such as nitrous oxide." Hospital course: Upon admission to the unit patient was admitted involuntarily on a petition and certificate and a second certificate was completed and faxed with the courts. Patient ended up signing a deferral with the collections attorney and agreeing to treatment. Patient initially mainly kept to himself on the unit however with time and treatment got along well with other patients on the unit and followed unit protocol. Patient was compliant with the medications and denied any side effects throughout hospital course. Patient was started on paliperidone by mouth increased her dose of 12 mg total daily for psychosis/mood stabilization, patient was transitioned onto Invega Sustenna giving loading dose 234 mg IM on 12/09, next dose was given on 12/14 156 mg IM, next maintenance dose will be due on 01/04 of 156 mg IM. Trazodone 100 mg daily at bedtime when necessary for insomnia, Vistaril when necessary for anxiety. Patient spoke of his stressors and engaged in therapy both group and individual. Patient was also seen by medical team for history and physical exam. Throughout the course of the hospitalization patient gradually improved with regards to mood, anxiety, psychosis, delusions, paranoia, sleep and returned back to their baseline level of functioning. On the day of discharge patient denied any suicidal or homicidal ideations intent or plan denied any auditory or visual hallucinations. Patient endorsed wanting to live for his health and to find a home. The patient denied any access to guns or weapons. Patient denied any paranoia and did not endorse any delusions. Patient does have a significant history of substance abuse and was counseled on abstaining from all substances including alcohol and marijuana. Patient was offered however declined inpatient substance-abuse rehab. Patient elected to do outpatient substance use treatment program through [facility]. Patient was also counseled on the medications and need for regular compliance and was encouraged to follow-up with their outpatient appointment for mental health and also for primary care. Patient's father served patient with PPO and eviction notice and he was informed of this while on the unit and he will not be allowed to return home. Patient was not able to find other accommodations are housing and opted for the option to go to [facility] with transportation. Mental status exam: General Appearance: Patient appears to be overweight, shaved head, stated age is alert, pleasant, and cooperative. Patient is in no acute distress and has improved hygiene and grooming Behavior: Patient is calmly seated without any agitated behavior. Speech: Patient's speech is fluent and nonpressured. Mood/Affect: Patient reports their mood is "good", affect is congruent Suicidality/Homicidality: Patient denies having any suicidal or homicidal ideation intent or plan. Perceptions: Patient denies any auditory or visual hallucinations. Though content/process: There is no evidence of any delusional thought content and thought process is linear and goal-directed. more future oriented Memory and concentration: AOX3, grossly intact for the purposes of this session. Can spell "WORLD" backwards correctly. Judgment and insight: chronically poor, however has improved with guarded prognosis Impression: Psychosis unspecified, likely schizoaffective disorder versus schizophrenia Inhalant abuse Nicotine dependence Plan: -Continue with discharge today as patient has improved and stabilized psychiatrically and is not currently an imminent threat to himself and/or others. Patient will remain at chronically elevated risk for harm to self and/or others due to his impulsivity and substance abuse. -Continue medications: Discontinued oral paliperidone. Patient was given Invega Sustenna 234 mg IM on 12/09, second dose 156 mg IM given on 12/14, next maintenance dose of 156 mg IM will be given on 01/04. Trazodone 100 mg daily at bedtime when necessary for insomnia, Vistaril when necessary for anxiety. -Patient was counseled on the need for medication compliance and appropriate follow-up at mental health and also primary care for medical issues. Patient verbalized understanding and agreed. -Social work to help with coordination and transportation to skilled nursing in [facility]. Social work also to arrange for patients follow up appointments with [facility] for psychiatric care along with follow up with primary care provider. -Patient counseled on abstaining from recreational drugs and marijuana and alcohol. Was informed/educated on the adverse effects on their physical and mental health. Patient verbally agreed and understood. Patient was offered substance abuse treatment however declined at this time. -Patient was instructed to return to the hospital or seek immediate medical care if their psychiatric or medical symptoms do worsen or reoccur. Allergies Allergy/AdvReac Type Severity Reaction Status Date / Time No Known Allergies Allergy Verified 12/03/22 16:25 Laboratory Results Coronavirus (PCR) Not Detected (Not Detectd) 12/03/22 12:17 Vital Signs Temp 97.8 F 12/14/22 06:54 Pulse 114 H 12/14/22 08:49 Resp 16 12/14/22 06:54 BP 145/106 12/14/22 08:49 Pulse Ox 96 12/10/22 08:39 FiO2 Intake & Output 12/13/22 12/14/22 12/14/22 18:59 06:59 18:59 Weight 104.3 kg Patient Condition at Discharge: Stable Plan - Discharge Summary Discharge Rx Participant: No New Discharge Prescriptions: New traZODone HCL [Desyrel] 100 mg PO HS PRN 30 Days #30 tab PRN Reason: Insomnia Nicotine 14Mg/24Hr Patch [Habitrol] 1 patch TRANSDERM DAILY 14 Days #14 patch Ibuprofen [Motrin] 400 mg PO BID 30 Days #60 tab hydrOXYzine pamoate [Vistaril] 50 mg PO DAILY PRN 15 Days #30 cap PRN Reason: Anxiety Paliperidone IM [Invega Sustenna] 156 mg IM QMONTHLY #1 each Continue Metoprolol Succinate (ER) [Toprol XL] 25 mg PO DIRECTED 30 Days #30 tab Discontinued Divalproex [Depakote] 1,000 mg PO HS 30 Days #60 tab traZODone HCL [Desyrel] 50 mg PO HS PRN 30 Days #30 tab PRN Reason: Insomnia Nicotine 21Mg/24Hr Patch [Habitrol] 1 patch TRANSDERM DIRECTED hydrOXYzine pamoate [Vistaril] 50 mg PO DIRECTED PRN PRN Reason: Insomnia OLANZapine [ZyPREXA] 10 mg PO DIRECTED Discharge Medication List Ibuprofen [Motrin] 400 mg PO BID 30 Days #60 tab 12/14/22 [Rx] Metoprolol Succinate (ER) [Toprol XL] 25 mg PO DIRECTED 30 Days #30 tab 07/31 [Rx] Nicotine 14Mg/24Hr Patch [Habitrol] 1 patch TRANSDERM DAILY 14 Days #14 patch 12/14/22 [Rx] Paliperidone IM [Invega Sustenna] 156 mg IM QMONTHLY #1 each 12/14/22 [Rx] hydrOXYzine pamoate [Vistaril] 50 mg PO DAILY PRN 15 Days #30 cap 12/14/22 [Rx] traZODone HCL [Desyrel] 100 mg PO HS PRN 30 Days #30 tab 12/14/22 [Rx] Follow up Appointment(s)/Referral(s): [facility] [[facility]STA[facility]] - 1 Week Patient Instructions/Handouts: How to Stop Smoking (DC), Mood Disorders (DC) Activity/Diet/Wound Care/Special Instructions: Avoid the use of street drugs and alcohol. Take all medications as prescribed. When you are in need of refills on your medications, please contact your medical provider and/or outpatient psychiatrist/provider to have this done. Please go to your scheduled outpatient appointment for aftercare treatment. If symptoms return or become worse, call the crisis line at and/or go to the nearest emergency room for evaluation. National Suicide Hotline 699. Discharge Disposition: OTHER INSTITUTION NOT DEFINED
== END 2022-12-14 16:05 | disposition home or self-care (01) | DRG 751 ==
LOC: EC 11:40 → 3MHU 13:36
PROVIDERS: ADMIT Psychiatry & Neurology Psychiatry; ATTEND Psychiatry & Neurology Psychiatry
DX: F29 Unspecified psychosis not due to a substance or known physiological condition (principal); E66.3 Overweight; F31.9 Bipolar disorder, unspecified; F17.290 Nicotine dependence, other tobacco product, uncomplicated; F18.10 Inhalant abuse, uncomplicated; Z11.52 Encounter for screening for COVID-19; Z28.310 Unvaccinated for COVID-19; F90.9 Attention-deficit hyperactivity disorder, unspecified type; K44.9 Diaphragmatic hernia without obstruction or gangrene; G47.00 Insomnia, unspecified; K21.9 Gastro-esophageal reflux disease without esophagitis; Z68.33 Body mass index [BMI] 33.0-33.9, adult; Z71.6 Tobacco abuse counseling; Z79.899 Other long term (current) drug therapy; Z56.0 Unemployment, unspecified; Z59.00 Homelessness unspecified; Z59.6 Low income; Z87.442 Personal history of urinary calculi
CPT/HCPCS: 82075; 87635; 93005; 99285